=== PATIENT | female | born 1995 | race Caucasian/White ===

== ENCOUNTER 2017-12-20 22:02 | Observation (INO) | payer MEDICAID, SELFPAY ==
[2017-12-20 22:04] VITALS: BP 106/68; PULSE 121; RESP 16; TEMP 37.3; O2SAT 98; BMI 20.6
--- NOTE | 2017-12-20 23:37 | EKG12_ITS ---
Test Reason : FLANK PAIN Blood Pressure : / mmHG Vent. Rate : 093 BPM Atrial Rate : 093 BPM P-R Int : 166 ms QRS Dur : 086 ms QT Int : 348 ms P-R-T Axes : 051 012 013 degrees QTc Int : 432 ms Normal sinus rhythm Normal ECG Confirmed by FELIPE ZUNIGA, RADHA ([id number]), city editor LUPE MAGDALENO ([id number]) on 12/26/2017 2:16:53 PM Referred By: JULIA Confirmed By:RADHA WANG MD
[2017-12-20] MEDS: Ondansetron 4 MG/2 ML Vial IV (23:49)
[2017-12-20] MEDS: 0.9% Normal Saline 1,000 ML 1000 ML IV (23:50)
[2017-12-20] MEDS: Morphine 4 MG/ML Syringe IV (23:50)
[2017-12-20 23:55] LABS: Mucous, Urine 0 SEEN /hpf (<or=2+); Red Blood Cells-Urine 0 SEEN /hpf (0-5)
[2017-12-20 23:57] LABS: Color, Urine Yellow (Yellow); Glucose, Dipstick Normal (Normal); Leukocyte Esterase-Dipstick 100 /ul (Negative); Nitrite-Dipstick Positive (Negative); Occult Blood-Urine 10 /ul (Negative); Protein-Dipstick 15 mg/dl (Negative); Specific Gravity, Urine 1.015 (1.002-1.030); Urine Bilirubin Dipstick Negative (Negative); Urine Clarity Sl. Cloudy (Clear); Urine Urobilinogen 1 mg/dl (Normal)
[2017-12-21] VITALS (9 sets, daily range): BP systolic 91–110; BP diastolic 50–66; PULSE 79–104; RESP 16–20; TEMP 36.8–37.1; O2SAT 97–100; BMI 20.7
[2017-12-21] LABS: Ketone-Dipstick 150 mg/dl (Negative)
[2017-12-21 00:03] LABS: Bacteria 3+ /hpf (None Seen); Squamous Epithelial Cells - UA 0-5 SEEN /hpf (5-10); White Blood Cells 5-10 SEEN /hpf (0-5)
[2017-12-21 00:07] LABS: Hematocrit 28.4 % (37-47); Hemoglobin 9.1 g/dl (12.0-15.0); Mean Corpuscular Hgb 24.6 pg (27.0-32.0); Mean Corpuscular Volume 76.8 fL (81-99); Platelet Count 239 K/mm3 (150-450); RBC Distribution Width CV 17.5 % (11.6-14.6); RBC Distribution Width SD 49.4 fl (35.1-43.9); White Blood Count 10.2 K/mm3 (4.4-11.0)
[2017-12-21 00:08] LABS: Absolute Lymphocyte Count 1.15 X10^3/ul (0.83-4.51); Absolute Neutrophil Count 8.4 X10^3/uL (2.0-7.7); Basophil# 0.02 X10^3/uL; Basophil% 0.2 % (0-1); Eosinophil# 0.07 X10^3/uL; Eosinophils% 0.7 % (0-5); Lymphocyte # 1.15 X10^3/ul (4.0); Lymphocyte % 11.2 % (19-41); Monocyte# 0.63 X10^3/uL; Monocyte% 6.2 % (0-10); Neutrophil # 8.36 X10^3/uL (2.7-7.7); Neutrophil % 81.6 % (47-70); POSITIVE COUNT NO; POSITIVE DIFFERENTIAL NO; POSITIVE MORPHOLOGY NO
[2017-12-21 00:22] LABS: Anion Gap 12 (5-15); BUN 5 mg/dL (7-18); BUN/Creat Ratio 11.1 RATIO (10-20); Calcium,Total 8.2 mg/dL (8.5-10.1); Chloride 101 mmol/L (98-107); Creatinine, Serum 0.45 mg/dL (0.55-1.02); EST Glomerular Filtration Rate 182 mL/min (>60); Est Glom Filt Rate - Afr Amer 220 mL/min (>60); Estimated Creatinine Clearance 167.59 ml/min; Glucose 89 mg/dL (74-106); Sodium Level 135 mmol/L (136-145)
[2017-12-21 00:35] LABS: D-Dimer Quantitative (DVT/PE) 1.61 FEU/ug/m (0.27-0.49)
[2017-12-21 00:36] LABS: Pregnancy, Serum, hCG Quali. POSITIVE Negative (0-9 Nonpreg)
--- NOTE | 2017-12-21 00:41 | ED.DCSUM_ITS ---
- ER Visit Summary Date of Service: 12/21/17 Chief Complaint: Left flank pain that radiates anteriorly and now to the right side with shortness of breath and pleuritic chest pain History of Present Illness: The patient is a 22 F who presents with left flank pain that started several days ago. She states now the pain radiates anteriorly to the left side and right side. She does not menstruate since she has a Mirena. This was placed approximately 1 year ago by an portfolio strategist at the [facility]. She does report discomfort with movement as well as breathing. There is no history of trauma. She reports fever denies chills or rigors. She denies any URI symptoms. She denies food intolerance. She denies nausea, vomiting diarrhea. She does complain of frequency. She denies dysuria , urgency or hematuria. She reports history of blood clot with . She reported to triage shortness of breath. When questioned she states it hurts to breathe and she cannot get a deep breath. She denies any leg pain, swelling or discoloration. Physical Examination: Vital signs remarkable for heart rate 121. She appears uncomfortable. Head is atraumatic normocephalic. Pupils are equal round reactive. Extraocular muscles are intact. TMs are pearly white with landmarks noted. Nares patent with no drainage. Posterior pharynx without erythema or exudate. Uvula is midline. There is no dysphonia or dysphasia. Trachea is midline. There is no stridor with auscultation of the neck. Heart is regular without murmur, gallop or rub. S1 and S2 are normal. Lungs are clear to auscultation with good movement of air bilaterally. Abdomen is remarkable tenderness over the left kidney. There is left CVA tenderness. She has pain out of proportion to palpation. There is no dermatologic lesions noted to suggest herpes varicella-zoster. There is no hyperesthesia. There is no asymmetry, swelling, discoloration, leg vein distention, palpable cords or tenderness along the distribution of the deep venous system. Test Results: White count and differential are normal. H&H is 9.1 and 28.4. UA is remarkable for leukoesterase, nitrites and blood. Microscopic is remarkable for pyuria and bacteria. D-dimer is elevated at 1.61. Serum hCG was positive. Serum quantitative hCG is 47,253. Emergency Department Course and Treatment: With patient's constellation of symptoms concerned that she may have a pulmonary embolus and she is tachycardic at 121. Since her only complaint is frequency one needs to entertain possibility of or urinary tract infection. Since serum qualitative test was positive a serum quantitative hCG was obtained. A transabdominal pelvic ultrasound performed by dc reveals a single live uterus with a heartbeat of 140-150. Head was visualized and appears normal with no abnormality. Spine was visualized with no abnormal. The upper and lower extremities are visualized with no obvious abnormality. Treatment Plan: A urine culture was obtained since there is concern she has pyelonephritis. She was treated with 1 g of Rocephin IV piggyback. D-dimer can be elevated because of and because of infection. Since there is now a source and expiration for her symptoms pulmonary embolus is less likely on the differential. Because the Mirena was placed by a [facility] portfolio strategist the on-call physician was paged since patient will require admission for pyelonephritis in and to address the Mirena issue. Disposition: Microarray Operations Vice President on paged for admission Impression: 1. Pyelo-nephritis in a patient 2. Microcytic anemia This note was generated with [employer] dictation software. It may contain incorrect words, spelling, and punctuation that were not noted in review of the chart prior to signing ED Disposition - Plan for ED Patient: Chief Complaint: Flank Pain Referrals: Care Physician,No Primary [Primary Care Provider] -
[2017-12-21] MEDS: Ceftriaxone 1 GM/50 ML BAG IV (00:45)
[2017-12-21] MEDS: HYDROmorphone 1 MG/ML Syringe IV ×2 (05:06→09:23)
[2017-12-21] MEDS: Ondansetron 4 MG/2 ML Vial IV ×2 (05:21→09:23)
--- NOTE | 2017-12-21 07:14 | US_ITS ---
STUDY: SECOND AND THIRD TRIMESTER OBSTETRICAL ULTRASOUND - LIMITED REASON FOR EXAM: Female, 22 years old. Positive hCG. IUD. LMP: UNKNOWN. PRIOR ULTRASOUND: None. TECHNIQUE: Transabdominal ultrasound evaluation was performed. FINDINGS: There is a single intrauterine fetus. The fetus is in a variable presentation. There is demonstrated cardiac activity with a heart rate of 143 bpm. There is a normal amniotic fluid volume. The largest amniotic fluid pocket measures 4.4 cm x 4.2 cm. The amniotic fluid index (ALLY) is within normal limits. The placenta is anterior in location and is not low lying. There are Grade 0 placental changes. The cervix measures 3.9 cm in length. BIOMETRY: BPD: 3.46 cm: 16 weeks, 5 days HC: 12.97 cm: 16 weeks, 5 days AC: 10.96 cm: 16 weeks, 6 days FL: 2.0 cm: 60 weeks, 0 days Age by LMP: Unknown. age by current US: 16 weeks, 4 days. BEATRIZ by current US: June 03, 2018. Estimated weight: 156 grams, +/- 23 grams Gender: Male US/OB Limited (No Biometrics) IMPRESSION: Single live intrauterine gestation with a mean gestational age of 16 weeks and 4 days. The IUD is not seen. Electronically Signed: Allan Ferreira MD at 9:42 EDT Tel [phone], Service support ,
[2017-12-21 08:20] LABS: Absolute Lymphocyte Count 1.38 X10^3/ul (0.83-4.51); Basophil# 0.01 X10^3/uL; Basophil% 0.1 % (0-1); Eosinophil# 0.07 X10^3/uL; Eosinophils% 0.9 % (0-5); Hematocrit 25.9 % (37-47); Hemoglobin 8.1 g/dl (12.0-15.0); Lymphocyte # 1.38 X10^3/ul (4.0); Lymphocyte % 17.3 % (19-41); Mean Corp Hgb Conc 31.3 g/gl (32-36); Mean Corpuscular Hgb 24.5 pg (27.0-32.0); Mean Corpuscular Volume 78.5 fL (81-99); Mean Platelet Vol. 10.4 fl (6.2-12.0); Monocyte% 6.3 % (0-10); Neutrophil # 6.01 X10^3/uL (2.7-7.7); Neutrophil % 75.3 % (47-70); POSITIVE COUNT NO; POSITIVE DIFFERENTIAL NO; POSITIVE MORPHOLOGY NO; Platelet Count 231 K/mm3 (150-450); RBC Distribution Width CV 17.7 % (11.6-14.6); RBC Distribution Width SD 48.2 fl (35.1-43.9)
[2017-12-21 08:46] LABS: Ferritin 15 ng/mL (8-252); Iron 24 ug/dL (50-170); Iron Binding Capacity,Total 349 ug/dL (250-450); PERCENT IRON SATURATION 6.9 % (15.0-55.0)
[2017-12-21] MEDS: 0.9% NaCl Peripheral Flush Adult/Peds IV ×2 (09:22→09:24)
--- NOTE | 2017-12-21 09:24 | NURSING ---
no sniffy type respers noted now. she is resting quietly in bed with S.O holding her hand.
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
--- NOTE | 2017-12-21 11:10 | NURSING ---
Leila, Pipe Fitter Supervisor Maintenance talked with this nurse and we both think pt should be in suicidal precautions. [facility], FURNACE CLERK/Insurance Verification Clerk sitting in with pt. Pt is on the Room Camera and all cords and sharps removed from the room.
[2017-12-21] MEDS: 0.9% Normal Saline 1,000 ML 100 ML IV ×2 (12:02→22:43)
--- NOTE | 2017-12-21 12:13 | NURSING ---
Pt laying in bed with boyfriend in the room with her. This nurse is observing patient via Camera.
--- NOTE | 2017-12-21 13:15 | NURSING ---
CLIENT SUCCESS SPECIALIST specialist talking to pt and S.O at this time.
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
[2017-12-21] MEDS: oxyCODONE 5 MG Tablet PO ×2 (14:40→19:17)
[2017-12-21] MEDS: Escitalopram Oxalate 10 MG Tablet PO (18:05)
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
[2017-12-21 21:59] LABS: Absolute Lymphocyte Count 1.35 X10^3/ul (0.83-4.51); Absolute Neutrophil Count 6.2 X10^3/uL (2.0-7.7); Basophil# 0.01 X10^3/uL; Basophil% 0.1 % (0-1); Eosinophil# 0.04 X10^3/uL; Eosinophils% 0.5 % (0-5); Hematocrit 26.8 % (37-47); Hemoglobin 8.5 g/dl (12.0-15.0); Lymphocyte # 1.35 X10^3/ul (4.0); Lymphocyte % 16.6 % (19-41); Mean Corp Hgb Conc 31.7 g/gl (32-36); Mean Corpuscular Hgb 24.5 pg (27.0-32.0); Mean Corpuscular Volume 77.2 fL (81-99); Mean Platelet Vol. 9.9 fl (6.2-12.0); Monocyte# 0.53 X10^3/uL; Monocyte% 6.5 % (0-10); Neutrophil # 6.17 X10^3/uL (2.7-7.7); Neutrophil % 76.2 % (47-70); Platelet Count 233 K/mm3 (150-450); RBC Distribution Width CV 17.6 % (11.6-14.6); Red Blood Count 3.47 M/mm3 (4.2-5.4); White Blood Count 8.1 K/mm3 (4.4-11.0)
[2017-12-21 22:02] LABS: POSITIVE COUNT NO; POSITIVE DIFFERENTIAL NO; POSITIVE MORPHOLOGY NO
[2017-12-21 22:08] LABS: Anion Gap 8 (5-15); BUN 4 mg/dL (7-18); BUN/Creat Ratio 10.4 RATIO (10-20); Calcium,Total 7.9 mg/dL (8.5-10.1); Chloride 107 mmol/L (98-107); Creatinine, Serum 0.39 mg/dL (0.55-1.02); EST Glomerular Filtration Rate 218 mL/min (>60); Est Glom Filt Rate - Afr Amer 264 mL/min (>60); Estimated Creatinine Clearance 193.73 ml/min; Glucose 88 mg/dL (74-106); Potassium 3.6 mmol/L (3.5-5.1); Sodium Level 137 mmol/L (136-145)
[2017-12-22 00:25] LABS: Bedside Glucose 85 mg/dL (70-110)
[2017-12-22 04:00] VITALS: BP 98/51; PULSE 87; RESP 16; TEMP 36.3; O2SAT 99
[2017-12-22 09:03] LABS: Vitamin B12 256 pg/mL (211-911)
[2017-12-22 10:00] VITALS: BP 95/58; PULSE 80; RESP 16; TEMP 36.7; O2SAT 98
[2017-12-22] MEDS: 0.9% Normal Saline 1,000 ML 100 ML IV (10:25)
[2017-12-22] MEDS: Escitalopram Oxalate 10 MG Tablet PO (10:25)
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
--- NOTE | 2017-12-22 12:17 | DCINST_ITS ---
- Discharge Diagnoses Current Active Problems: acute pylonephritis You will use the following diet at home:: No restrictions Your food should be the consistency of: Regular Your liquids should be the consistency of: Regular/Thin Discharge Activity: Return to Normal Activity, May Shower, May Take a Tub Bath May resume sexual activity in: 1-2 weeks Call your doctor if your incision/area has: Increased Pain/ Swelling Call your doctor if you observe: Fever of 101 or Higher Additional Instructions: YOu may take acetaminophen as directed on the bottle needed for pain Allergies/Adverse Reactions: Allergies No Known Allergies Allergy (Verified 04/25/15 21:37) Medications to take at Discharge Cephalexin [Keflex] 500 mg PO Q8 #40 cap 12/22/17 Ferrous Sulfate 325 mg PO BIDCM #60 tab 12/22/17 Vit No.130/Iron/FA [ Vitamins] 1 ea PO DAILY #30 tab 12/22/17 The following prescriptions were given: Cephalexin [Keflex] 500 mg PO Q8 #40 cap Vit No.130/Iron/FA [ Vitamins] 1 ea PO DAILY #30 tab Ferrous Sulfate 325 mg PO BIDCM #60 tab Primary Care Physician: Care Physician,No Primary [Primary Care Provider] - Test Results: Test results from this visit will be discussed in further detail at your follow- up appointment, if applicable. Please Follow Up With: Preeti Topete MD - [phone] When: Call my office for an appointment in 1 week.
== END 2017-12-22 14:50 | disposition home or self-care (01) ==
LOC: ED 12-21 00:06 → MS2 12-21 02:46
PROVIDERS: Hospitalist; Obstetrics & Gynecology; Admitting Provider Obstetrics & Gynecology; Emergency Provider Emergency Medicine; Visit Provider Obstetrics & Gynecology
DX: O23.02 Infections of kidney in pregnancy, second trimester (principal); Z3A.16 16 weeks gestation of pregnancy; Z87.891 Personal history of nicotine dependence; Z86.718 Personal history of other venous thrombosis and embolism; O99.012 Anemia complicating pregnancy, second trimester; D64.89 Other specified anemias
CPT/HCPCS: 76815; 80048; 81001; 82607; 82728; 82962; 83540; 83550; 84702; 84703; 85025; 85379; 87077; 87086; 87088; 87186; 93005; 96361; 96365; 96366; 96367; 96375; 96376; 97802; 99218; 99283; 99406; J7030; A4216; G0378; J2405

== ENCOUNTER 2017-12-25 08:47 | Emergency (ER) | payer MEDICAID, SELFPAY ==
[2017-12-25 08:51] VITALS: BP 108/62; PULSE 64; RESP 16; TEMP 36.8; O2SAT 100; BMI 20.7
--- NOTE | 2017-12-25 09:26 | EKG12_ITS ---
Test Reason : UPPER EXTREMITY Blood Pressure : / mmHG Vent. Rate : 061 BPM Atrial Rate : 061 BPM P-R Int : 158 ms QRS Dur : 086 ms QT Int : 396 ms P-R-T Axes : 027 017 018 degrees QTc Int : 398 ms Normal sinus rhythm Normal ECG Confirmed by RADHA WANG MD ([id number]), writer editor LUPE MAGDALENO ([id number]) on 12/27/2017 2:11:56 PM Referred By: SMITA Confirmed By:RADHA WANG MD
--- NOTE | 2017-12-25 09:30 | RAD_ITS ---
STUDY: X-RAY - RIGHT HAND REASON FOR EXAM: Female, 22 years old. Pain along the distal interphalangeal joint of the thumb following injury. TECHNIQUE: 3 view(s) of the hand. COMPARISON: None. FINDINGS: Normal radiocarpal articulation. Normal distal radioulnar joint. Normal visualized carpal bones. Normal carpal articulations Normal carpometacarpal articulation of the thumb. Normal second through fifth carpometacarpal joints. Normal metacarpi. Normal metacarpophalangeal joint of the thumb. Normal interphalangeal joint of the thumb. Normal proximal and distal phalanges of the thumb. Normal metacarpophalangeal joints of the second through fifth fingers. Normal proximal and distal interphalangeal joints of the second through fifth fingers. Normal phalanges of the second through fifth fingers. The soft tissue structures are unremarkable. RAD/Hand Min 3 Views IMPRESSION: Normal x-ray examination of the hand. Electronically Signed: Allan Ferreira MD at 10:11 EDT Tel [phone], Service support ,
--- NOTE | 2017-12-25 09:32 | ED.VISSUMM ---
- ER Visit Summary Date of Service: 12/25/17 Chief Complaint: Right thumb injury History of Present Illness: The patient is a 22 F presenting with right thumb injury. Patient states she accidentally slammed her right thumb in a car door. She states after immediately following that she had throbbing pain, saw blood on her thumb and passed out. She was sitting and had no additional injury. She states she is 5 months . Denies vaginal bleeding or pain. She is currently on Keflex for UTI. Physical Examination: Vitals are stable. Patient is afebrile. Alert no acute distress. HEENT exam is unremarkable. Neck is nontender Lungs are clear and equal bilaterally. Heart is regular rate and rhythm. Abdomen is soft gravid nontender nondistended. Extremities right thumb distal tenderness, mild skin avulsion proximal to nail. Skin is warm and dry. No focal neurologic deficit. Remainder of exam is unremarkable. Emergency Department Course and Treatment: Patient was given Tylenol, Zofran. Right hand x-ray shows no acute process. EKG is sinus rate 61. Orthostatics negative. heart tones 152. Aluminum foam splint was applied. Patient is resting comfortably in the emergency department. Discussed with Hilda babcock for [facility] GATE SUPERVISOR and she will follow up in the office. Advised to follow-up with GATE SUPERVISOR. Advised return ED if worsening complaints. Disposition: Discharge home Impression: Right thumb contusion, vagal episode This note was generated with [employer] dictation software. It may contain incorrect words, spelling, and punctuation that were not noted in review of the chart prior to signing ED Disposition - Plan for ED Patient: Chief Complaint: Upper Extremity Injury Instructions: ED Crush Injury Finger No Fx Referrals: Preeti Topete MD [STAFF PHYSICIAN] - Care Physician,No Primary [Primary Care Provider] -
--- NOTE | 2017-12-25 09:35 | ED.DCSUM_ITS ---
- ER Visit Summary Date of Service: 12/25/17 Chief Complaint: Right thumb injury History of Present Illness: The patient is a 22 F presenting with right thumb injury. Patient states she accidentally slammed her right thumb in a car door. She states after immediately following that she had throbbing pain, saw blood on her thumb and passed out. She was sitting and had no additional injury. She states she is 5 months . Denies vaginal bleeding or pain. She is currently on Keflex for UTI. Physical Examination: Vitals are stable. Patient is afebrile. Alert no acute distress. HEENT exam is unremarkable. Neck is nontender Lungs are clear and equal bilaterally. Heart is regular rate and rhythm. Abdomen is soft gravid nontender nondistended. Extremities right thumb distal tenderness, mild skin avulsion proximal to nail. Skin is warm and dry. No focal neurologic deficit. Remainder of exam is unremarkable. Emergency Department Course and Treatment: Patient was given Tylenol, Zofran. Right hand x-ray shows no acute process. EKG is sinus rate 61. Orthostatics negative. heart tones 152. Aluminum foam splint was applied. Patient is resting comfortably in the emergency department. Discussed with Hilda babcock for [facility] AUTO ELECTRICIAN and she will follow up in the office. Advised to follow-up with AUTO ELECTRICIAN. Advised return ED if worsening complaints. Disposition: Discharge home Impression: Right thumb contusion, vagal episode This note was generated with [employer] dictation software. It may contain incorrect words, spelling, and punctuation that were not noted in review of the chart prior to signing ED Disposition - Plan for ED Patient: Chief Complaint: Upper Extremity Injury Instructions: ED Crush Injury Finger No Fx Referrals: Preeti Topete MD [STAFF PHYSICIAN] - Care Physician,No Primary [Primary Care Provider] -
[2017-12-25] MEDS: Acetaminophen 500 MG Tablet 1000 MG PO (10:03)
[2017-12-25] MEDS: Ondansetron ODT 4 MG Tablet PO (10:03)
[2017-12-25 10:06] VITALS: BP 103/50; BP 109/68; BP 113/67; PULSE 66; PULSE 68; PULSE 69
--- NOTE | 2017-12-25 10:32 | ED.DEP ---
ED Disposition - Plan for ED Patient: Chief Complaint: Upper Extremity Injury Instructions: ED Crush Injury Finger No Fx Referrals: Care Physician,No Primary [Primary Care Provider] - Preeti Topete MD [STAFF PHYSICIAN] -
== END 2017-12-25 11:14 | disposition home or self-care (01) ==
PROVIDERS: Emergency Provider Emergency Medicine
DX: O9A.219 Injury, poisoning and certain other consequences of external causes complicating pregnancy, unspecified trimester (principal); S60.011A Contusion of right thumb without damage to nail, initial encounter; Z3A.00 Weeks of gestation of pregnancy not specified; R55 Syncope and collapse; O23.40 Unspecified infection of urinary tract in pregnancy, unspecified trimester; W23.0XXA Caught, crushed, jammed, or pinched between moving objects, initial encounter; Y93.9 Activity, unspecified; Y92.9 Unspecified place or not applicable
CPT/HCPCS: 73130; 93005; 99285

== ENCOUNTER 2018-03-12 21:20 | Outpatient (CLI) | payer MEDICAID, SELFPAY ==
[2018-03-12 21:37] VITALS: BMI 24.5
[2018-03-12 22:00] LABS: Color, Urine Yellow (Yellow); Glucose, Dipstick Normal (Normal); Ketone-Dipstick 5 mg/dl (Negative); Leukocyte Esterase-Dipstick 100 /ul (Negative); Nitrite-Dipstick Negative (Negative); Occult Blood-Urine Negative /ul (Negative); Protein-Dipstick 15 mg/dl (Negative); Urine Clarity Sl. Cloudy (Clear); Urine Urobilinogen 12 mg/dl (Normal)
[2018-03-12 22:04] LABS: Urine Bilirubin Dipstick 1 mg/dL (Negative)
[2018-03-12 22:08] LABS: White Blood Cells 10-25 SEEN /hpf (0-5)
[2018-03-12 22:09] LABS: Bacteria 2+ /hpf (None Seen); Mucous, Urine RARE /hpf (<or=2+); Red Blood Cells-Urine 0-5 SEEN /hpf (0-5); Squamous Epithelial Cells - UA 5-10 SEEN /hpf (5-10)
[2018-03-12] MEDS: Acetaminophen 500 MG Tablet 1000 MG PO (23:20)
--- NOTE | 2018-03-13 00:35 | OB.TRI.NOTE ---
- Problem List (1) Late care affecting in third trimester Status: Acute (2) Pelvic pain affecting in third trimester, antepartum Status: Acute History of Present Illness Date of Service: 03/13/18 Was patient seen by the physician?: Yes Reason For Visit: R/O LABOR Date of Service: 03/12/18 Final BEATRIZ: 05/31/18 Final BEATRIZ Source: LMP Gestational age: 28 Weeks and 5 Days History of Present Illness: Patient presents reporting onset of cramping and scant mucus discharge. Patient also reports worsening pelvic pressure and discomfort with walking. Patient's adoptive mother was concerned that something was happening, so patient decided to come into hospital for evaluation. Patient reports +FM, denies LOF, denies VB. Allergies No Known Allergies Allergy (Verified 04/25/15 21:37) Review of Systems Constitutional: Denies: Chills, Fever, Weight Change HEENT: Denies: Head Aches, Sinus Congestion, Sinus Drainage Cardiovascular: Denies: Chest Pain, Palpitations Respiratory: Denies: Cough, Shortness of breath at rest, Sputum production Gastrointestinal: Denies: Abdominal Pain, Nausea, Vomiting Genitourinary: Denies: Dysuria Gynecological: Reports: Vaginal discharge - Reports scant mucus discharge Musculoskeletal: Denies: Joint Pain, Joint Tenderness Skin: Denies: Rash, Wounds Neurological: Denies: Numbness, Tingling, Focal weakness Psychiatric: Denies: Anxiety, Depression, Homicidal Ideations, Suicidal Ideations Hematologic/ Lymphatic: Denies: Easy Bruising, Easy Bleeding Physical Exam Vitals: See nursing note for vital signs - normotensive and afebrile General: Alert, Oriented x3, No apparent distress HEENT: Atraumatic, Normocephalic. 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 Negative for: Vulvar lesions Estimated gestational size: Appropriate for gestational size Presentation: Cephalic Cervix Dilation (cm): 0 Station: -3 Effacement (%): 0 NST - FHR Rate Baby A Baseline: 130 Variability:: Moderate Accelerations:: 15 x 15 Decelerations:: None NST Reactive:: Appropriate for gestational age FHR Category:: Category I Uterine Activity:: No contractions noted on tocometer Impression/Plan 22 y/o @ 28.4weeks, Pelvic Pain, R/O PTL, Category I FHT 1) Urinalysis positive for leuk esterase and bacteria - CCMS sent 2) GC/CT culture sent 3) PTL precautions reviewed 4) Cervix closed - unlikely to be PTL. Patient discharge to home in stable condition 5) RTC to [facility] as scheduled for next visit. Blanca PATTERSON
--- NOTE | 2018-03-13 00:39 | OB.TRI.HP_ITS ---
- Problem List (1) Late care affecting in third trimester Status: Acute (2) Pelvic pain affecting in third trimester, antepartum Status: Acute History of Present Illness Date of Service: 03/13/18 Was patient seen by the physician?: Yes Reason For Visit: R/O LABOR Date of Service: 03/12/18 Final BEATRIZ: 05/31/18 Final BEATRIZ Source: LMP Gestational age: 28 Weeks and 5 Days History of Present Illness: Patient presents reporting onset of cramping and scant mucus discharge. Patient also reports worsening pelvic pressure and discomfort with walking. Patient's adoptive mother was concerned that something was happening, so patient decided to come into hospital for evaluation. Patient reports +FM, denies LOF, denies VB. Allergies No Known Allergies Allergy (Verified 04/25/15 21:37) Review of Systems Constitutional: Denies: Chills, Fever, Weight Change HEENT: Denies: Head Aches, Sinus Congestion, Sinus Drainage Cardiovascular: Denies: Chest Pain, Palpitations Respiratory: Denies: Cough, Shortness of breath at rest, Sputum production Gastrointestinal: Denies: Abdominal Pain, Nausea, Vomiting Genitourinary: Denies: Dysuria Gynecological: Reports: Vaginal discharge - Reports scant mucus discharge Musculoskeletal: Denies: Joint Pain, Joint Tenderness Skin: Denies: Rash, Wounds Neurological: Denies: Numbness, Tingling, Focal weakness Psychiatric: Denies: Anxiety, Depression, Homicidal Ideations, Suicidal Ideations Hematologic/ Lymphatic: Denies: Easy Bruising, Easy Bleeding Physical Exam Vitals: See nursing note for vital signs - normotensive and afebrile General: Alert, Oriented x3, No apparent distress HEENT: Atraumatic, Normocephalic. 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 Negative for: Vulvar lesions Estimated gestational size: Appropriate for gestational size Presentation: Cephalic Cervix Dilation (cm): 0 Station: -3 Effacement (%): 0 NST - FHR Rate Baby A Baseline: 130 Variability:: Moderate Accelerations:: 15 x 15 Decelerations:: None NST Reactive:: Appropriate for gestational age FHR Category:: Category I Uterine Activity:: No contractions noted on tocometer Impression/Plan 22 y/o @ 28.4weeks, Pelvic Pain, R/O PTL, Category I FHT 1) Urinalysis positive for leuk esterase and bacteria - CCMS sent 2) GC/CT culture sent 3) PTL precautions reviewed 4) Cervix closed - unlikely to be PTL. Patient discharge to home in stable condition 5) RTC to [facility] as scheduled for next visit. Blanca PATTERSON
[2018-03-13 01:07] LABS: Chlamydia Trachomatis by PCR Negative (Negative); Neisserai gonorrhoeae by PCR Negative (Negative); Probe Check PASS; Sample Adequacy Control PASS; Specimen Processing Control PASS
== END 2018-03-12 23:25 | disposition home or self-care (01) ==
LOC: WPOUT 21:34 → WP 21:36
PROVIDERS: Advanced Practice Midwife; Visit Provider Obstetrics & Gynecology
DX: O26.893 Other specified pregnancy related conditions, third trimester (principal); R10.2 Pelvic and perineal pain; O09.33 Supervision of pregnancy with insufficient antenatal care, third trimester; Z3A.28 28 weeks gestation of pregnancy
CPT/HCPCS: 59025; 59050; 81001; 87086; 87088; 87491; 87591; 99218; G0378

== ENCOUNTER 2018-05-30 19:31 | Inpatient (IN) | payer MEDICAID, SELFPAY ==
[2018-05-30 19:38] VITALS: BMI 27.3
[2018-05-30] MEDS: 0.9% Normal Saline 100 ML IV.SOLN. INTRA-UTER (20:30)
[2018-05-30] MEDS: Lactated Ringers 1,000 ML 50 ML IV (20:45)
--- NOTE | 2018-05-30 21:00 | HP.PCM_ITS ---
- Problem List (1) Anemia affecting , antepartum Status: Acute (2) Support system deficit Status: Chronic (3) Custody issue Status: Chronic (4) History of suicidal tendencies Status: Chronic (5) History of depression Status: Chronic (6) History of marijuana use Status: Chronic History Date of Admission: 05/30/18 Final BEATRIZ: 05/31/18 Final BEATRIZ Source: LMP Gestational age: 39 Weeks and 6 Days History of this : This is a 23 year-old, G [4], P [3], at 39+6 weeks gestational age who presents for admission for IOL for maternal well-being. Patient was seen in office today and reported worsening depression and thoughts of harming her self over the weekend. Patient also noted a decrease in movement. While Reactive NST was noted in office, this patient case was discussed with Dr. Efrem ZUNIGA OB provider weapons system instrument mechanic and back-up physician at the time. [place] decision made to move forward with IOL for maternal well-being. Patient's course was initiated at 20 wks x 10 visits. Course was complicated by hospital admission for pyelonephritis at 19 weeks gestation, and admission to [id number] facility for substance use (vaping, pills, marijuana). Allergies No Known Allergies Allergy (Verified 05/30/18 20:05) cats Home Medications: Home Medications Ferrous Sulfate 325 mg PO TID 03/12/18 Vit No.130/Iron/Folic [ Vitamins] 1 each PO DAILY 03/12/18 Citalopram [Celexa] 20 mg PO DAILY 05/30/18 Smoking Status: Former smoker Alcohol: None Number of Fetus(es): 1 History Past Pregnancies: Past Pregnancies Delivery Date Name GA/Weeks Outcome Route Weight Gender Labor Length Anesthesia Delivery Location Provider FOB Labs: GBS Negative, Urine Culture - Negative, Urine Tox - Positive Marijuana --> rpt in 3rd trimester negative, 1 hour GCT = 120, H/H = 9.3/31.3--> 8.9/29.1 -->8.3 GC/CT = Neg/+CT --> [facility] and Rpt was Neg/ Neg, HIV Neg, HepBsAg Neg, Rubella Immune, Syphilis Neg, HCV Neg, O+, Abs Screen Neg, Trich Neg Ultrasound - 2nd trimester anatomy survey done WNL Expected Infant Delivery Method: Spontaneous Vaginal Describe any other labor & delivery plans:: Desires epidural for labor Number of Visits: 10 Review of Systems Constitutional: Denies: Chills, Fever, Weight Change HEENT: Denies: Head Aches, Sinus Congestion, Sinus Drainage Cardiovascular: Denies: Chest Pain, Palpitations Respiratory: Denies: Cough, Shortness of breath at rest, Sputum production Gastrointestinal: Denies: Abdominal Pain, Nausea, Vomiting Genitourinary: Denies: Dysuria Gynecological: Reports: Vaginal discharge - Reports possible loss of mucus plug. Denies: Vaginal bleeding Musculoskeletal: Denies: Joint Pain, Joint Tenderness Skin: Denies: Rash, Wounds Neurological: Denies: Numbness, Tingling, Focal weakness Psychiatric: Reports: Depression, Suicidal Ideations. Denies: Anxiety, Homicidal Ideations Hematologic/ Lymphatic: Denies: Easy Bruising, Easy Bleeding Physical Exam Vitals: See nursing notes for Vital Signs - Normotensive and patient is Afebrile General: Alert, Oriented x3, No apparent distress HEENT: Atraumatic, Normocephalic. 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 Negative for: Vulvar lesions Estimated gestational size: Appropriate for gestational size Presentation: Cephalic Cervix Dilation (cm): 2 Station: -2 Effacement (%): 60 Assessment/Plan All Active Problems Late care affecting in third trimester (Acute) Pelvic pain affecting in third trimester, antepartum (Acute) Anemia affecting , antepartum (Acute) This is a 23 year-old, G [4], P [3], at 39+6 weeks gestational age, IOL for Maternal Well-Being P: 1) Admit patient - Dr. Efrem ZUNIGA OB back-up provider aware of admission 2) IV heplock started 3) Gill Catheter bulb placed per protocol for IOL 4) Anticipate AROM with use of pitocin once cervix >3cm dilated 5) Epidural on request 6) Anticipate Blanca Callahan RESOURCE PROGRAM TEACHER-CNM
[2018-05-30 21:13] LABS: Hematocrit 33.9 % (37-47); Hemoglobin 10.5 g/dl (12.0-15.0); Mean Corpuscular Hgb 25.6 pg (27.0-32.0); Mean Corpuscular Volume 82.7 fL (81-99); Mean Platelet Vol. 10.2 fl (6.2-12.0); Platelet Count 240 K/mm3 (150-450); RBC Distribution Width CV 28.1 % (11.6-14.6); RBC Distribution Width SD 80.6 fl (35.1-43.9); White Blood Count 10.1 K/mm3 (4.4-11.0)
[2018-05-30 21:19] LABS: Scan Indicated on CBC? Y/N YES- FLAGS NOTED
[2018-05-30 21:24] LABS: Amphetamine Urine VISTA NEGATIVE (<1000 ng/mL); Barbiturate Urine VISTA NEGATIVE (< 200 ng/mL); Benzodiazepine Urine VISTA NEGATIVE (< 200 ng/mL); Cocaine Urine VISTA NEGATIVE (< 300 ng/mL); Ecstacy Urine VISTA NEGATIVE (< 500 ng/mL); Methadone Urine VISTA NEGATIVE (< 300 ng/mL); PCP Urine VISTA NEGATIVE (< 25 ng/mL); THC Urine VISTA NEGATIVE (< 50 ng/mL); Vista UDS pH Range 7
[2018-05-30 21:31] LABS: Differential Comment SCANNED
[2018-05-31] MEDS: 0.9% Saline Lock 10 ML Syringe IV
[2018-05-31] MEDS: Oxytocin 30 units/NS 500 ml 30 UNITS/500 ML IV.SOLN IV (00:05)
--- NOTE | 2018-05-31 00:32 | PCM.PN.OB ---
Patient Problems: Active and Suspected Problems Anemia affecting , antepartum (Acute) Subjective: Patient sitting up in bed, michael catheter has come out and IV pitocin has been ordered to be started. Patient denies any complaints or concerns at this time. Requests SVE to be done at this time, patient is considering getting an epidural placed. Objective: FHT baseline 120, moderate variability, + accels, no decels Ctx irregular, q 5-10 minutes, palpated mild to moderately strong SVE = 3/70/-2 posterior cervix - Physical Exam General: Alert, Oriented x3, Cooperative HEENT: Atraumatic, Normocephalic Lungs: Normal air movement Cardiovascular: Regular rate, Regular Rhythm Abdomen: Soft, Non Tender, Non-Distended Extremities: No edema Neurological: Deep Tendon Reflexes 2+/4 and Symmetrical Psych/Mental Status: Appropriate Weight: 159 lb 6 oz Body Mass Index (BMI) 27.3 Finger Stick Blood Glucose 99 Laboratory Tests Past 24 Hrs 05/30/18 05/30/18 05/30/18 20:45 20:45 21:00 WBC 10.1 RBC 4.10 L Hgb 10.5 L Hct 33.9 L MCV 82.7 MCH 25.6 L MCHC 31.0 L RDW 28.1 H RDW Differential 80.6 H Plt Count 240 MPV 10.2 Differential Comment SCANNED Urine Opiates Screen NEGATIVE Urine Methadone Screen NEGATIVE Ur Barbiturates Screen NEGATIVE Ur Phencyclidine Scrn NEGATIVE Ur Amphetamines Screen NEGATIVE U Methamphetamin-MDMA NEGATIVE U Benzodiazepines Scrn NEGATIVE Urine Cocaine Screen NEGATIVE U Cannabinoids Screen NEGATIVE Ur Drug Screen Comment Blood Type O POSITIVE Antibody Screen NEGATIVE Medical Necessity - Tobacco Use Smoking Status: Former smoker Assessment/Plan All Active Problems Late care affecting in third trimester (Acute) Pelvic pain affecting in third trimester, antepartum (Acute) Anemia affecting , antepartum (Acute) 23 y/o @ 39.6wks, IOL for Maternal Well-Being, Category I FHT P: 1) Continue present management 2) Epidural on request 3) Continue pitocin titration for labor augmentation per protocol 4) Anticipate Blanca Callahan APRN-TIFFANIE
[2018-05-31] MEDS: fentaNYL-bupivacaine (epidural) 100 ML BAG EPIDURAL ×2 (01:07→05:35)
[2018-05-31] MEDS: Ondansetron 4 MG/2 ML Vial IV (05:30)
[2018-05-31] MEDS: Lactated Ringers 1,000 ML 50 ML IV ×2 (05:40)
--- NOTE | 2018-05-31 06:28 | PCM.PN.OB ---
Patient Problems: Active and Suspected Problems Anemia affecting , antepartum (Acute) Subjective: Patient awake and sitting comfortably, reports that epidural continues to provide comfort for her at this time. Patient also noted small gush of fluid recently, confirmation of SROM noted by nursing staff for clear fluid. Objective: FHT baseline 120, moderate variability, + accels, occasional early decels noted Ctx q 2 minutes, lasting 60 seconds, palpate strong SVE = deferred; last check by nursing staff /-1 - Physical Exam General: Alert, Oriented x3, Cooperative HEENT: Atraumatic, Normocephalic Lungs: Normal air movement Cardiovascular: Regular rate, Regular Rhythm Abdomen: Soft, Non Tender, Non-Distended Extremities: No edema Neurological: Deep Tendon Reflexes 2+/4 and Symmetrical Psych/Mental Status: Appropriate Weight: 159 lb 6 oz Body Mass Index (BMI) 27.3 Finger Stick Blood Glucose 99 Intake and Output for Last 24 Hours 05/29/18 05/30/18 05/31/18 23:59 23:59 23:59 Intake Total 2348 / 2348 Output Total 150 / 150 Balance 2198 / 2198 Laboratory Tests Past 24 Hrs 05/30/18 05/30/18 05/30/18 20:45 20:45 21:00 WBC 10.1 RBC 4.10 L Hgb 10.5 L Hct 33.9 L MCV 82.7 MCH 25.6 L MCHC 31.0 L RDW 28.1 H RDW Differential 80.6 H Plt Count 240 MPV 10.2 Differential Comment SCANNED Urine Opiates Screen NEGATIVE Urine Methadone Screen NEGATIVE Ur Barbiturates Screen NEGATIVE Ur Phencyclidine Scrn NEGATIVE Ur Amphetamines Screen NEGATIVE U Methamphetamin-MDMA NEGATIVE U Benzodiazepines Scrn NEGATIVE Urine Cocaine Screen NEGATIVE U Cannabinoids Screen NEGATIVE Ur Drug Screen Comment Blood Type O POSITIVE Antibody Screen NEGATIVE Medical Necessity - Tobacco Use Smoking Status: Former smoker Assessment/Plan All Active Problems Late care affecting in third trimester (Acute) Pelvic pain affecting in third trimester, antepartum (Acute) Anemia affecting , antepartum (Acute) 23 y/o @ 40 weeks, Transition stage of Labor, Category I FHT P: 1) Continue present management 2) Anticipate 3) Dr. Efrem ZUNIGA OB back-up updated on patient status Blanca PATTERSON
--- NOTE | 2018-05-31 08:38 | PCM.PN.BLA ---
Progress Note SVE done - patietn found to be AL/100/0 with BBOW. AROM of forebag done for clear fluid. Will await for maternal urge to bear down and then will start pushing with patient. Blanca Callahan APRN-ARISM
[2018-05-31] MEDS: Oxytocin 30 units/NS 500 ml 30 UNITS/500 ML IV.SOLN 334 UNITS IV (09:08)
--- NOTE | 2018-05-31 09:23 | PCM.OB.VAG ---
- Problem List (1) Anemia affecting , antepartum Status: Acute (2) Support system deficit Status: Chronic (3) Custody issue Status: Chronic (4) History of suicidal tendencies Status: Chronic (5) History of depression Status: Chronic (6) History of marijuana use Status: Chronic Vaginal Delivery Maternal Presentation: Medically Indicated Induction Method of Induction: Pitocin, Gill Bulb Medical Reason for Induction: - - Maternal Well-Being Amniotic Fluid Description: Clear Final BEATRIZ: 05/31/18 Gestational age: 40 Weeks and 0 Days Date of Procedure: 05/31/18 Pre-Operative Diagnosis: IUP @ 40 weeks, Suicidal Ideations, Hx of Depression Post-Operative Diagnosis: of Viable Baby Surgery/ Procedure Performed: Spontaneous Vaginal Delivery Anesthesiologist: Dann Katz Type of Anesthesia: Epidural Description of Procedure: Patient was found to be c/c/+1 with forebag that was bulging. AROM of forebag for clear fluid. Soon after, patient felt urge to bear down and spontaneously delivered viable boy baby over intact perineum at 0837. Infant head delivered OA, restituted to ROMAIN and then ROT. had spontaneous cry and respirations. dried and stimulated, mouth and nose bulb suctioned when it was placed on maternal chest, Apgars 8 and 9. weight pending. Umbilical cord clamped and cut once it stopped pulsing. Placenta then delivered spontaneously using gentle downward cord traction with maternal pushing effort. Placenta intact with 3VC, placental triage WNL. FF midline 2FB to massage, 3rd stage pitocin for active management infusing per protocol. Mirena IUD placed using sterile technique per patient request for immediate LARC. Partial expulsion noted soon after, IUD repositioned with gloved hand. Plan for Ancef 1g IV x 1 for infection prophylaxis. Upon inspection of vaginal vault, no lacerations noted. EBL = 150cc. Sponge count correct. Vaginal sweep negative. Bonding and [id number] initiated. Social Work Consult filed. Blanca Callahan APRN-CNM Presentation: Vertex Placental Delivery Description: Spontaneous Placenta Disposition: [facility] Cord Vessel Description: 3 Vessels Cord Entanglement: None Estimated Blood Loss: 150 A gender: Male (1 minute): 8 (5 minute): 9 Episiotomy Description: None Laceration: None Medications given after delivery: IV Pitocin Complications: None
[2018-05-31] MEDS: Oxytocin 30 units/NS 500 ml 30 UNITS/500 ML IV.SOLN 167 UNITS IV (09:38)
[2018-05-31] MEDS: Cefazolin 1 GM/50 ML BAG IV (10:49)
[2018-05-31] MEDS: Citalopram 20 MG Tablet PO (10:50)
[2018-05-31 13:30] VITALS: BP 103/56; PULSE 88; RESP 16; TEMP 36.7; O2SAT 100
[2018-05-31] MEDS: Ibuprofen 600 MG Tablet PO (14:40)
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
--- NOTE | 2018-05-31 16:30 | CASEMGMT ---
Social Work Assessment Labor and Delivery Unit Date of Referral: 05/30/2018 Time of Referral: 2119 Referred By: Blanca Callahan Date of Intervention: 05/31/2018 Time of Intervention: 1630 Reason for Referral: maternal mental health and substance use history. History obtained from: medical record and mother of baby (TITO) Marj Escobar Household composition: TITO reports has had own apartment for two months now. Lives alone and intends to take baby to this home, as well as transition 3rd child back into the home. Patient's parent/guardian status: MOB is but for several years now from Ramila Lopez. The is not the father to the baby. Current father of baby (FOB) is reported to be Jerry Tannerashley. MOB reports was with Jerry for almost a year and broke up on August 2017. MOB reports uncertainty as to how much involvement the current and reported FOB will have. MOB reports FOB has some things of his own to work out. TITO now has 4 children. Minor Children include: Jennifer Bocanegra, born 13, father if Ramila Lopez, child currently in custody of MOB?s parents. Zaid Lopez, born 03[birth year]07[birth year]15, father is Ramila Lopez, child currently in custody of MOB?s parents. Chioma Lopez, born [birth year]-17, child in MOB?s custody, though as been living with MOB?s parents since the summertime when TITO has having homelessness issues. , Ethan Lopez, born 05[birth year]2018, MOB reporting intentions to be able to raise this baby. Medical History: TITO is G4, P3 to 4 after delivering Ethan. was unplanned and a surprise. MOB found out about around 19 weeks gestation, when TITO was hospitalized for a kidney infection. PNC in the OBGYN office then started around 20 weeks. Baby boy Ethan was born weighing 8 pounds 13 ounces, ?s 8 and 9. Educational Status: TITO reports graduated high school from a school called [employer], but it came out the certificates were fake, and the school did not meet standard school requirements. TITO reports is now working GED completion, just has one more test to pass before gets GED. 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 MOB now has zavala assistance through [employer]. Supplies: MOB reports to have car seat, crib, changing table, a pack of wipes, ?someone gave me? a pack of diapers, and some clothing. MOB still needs bottles, formula and a breast pump. MOB is likely going to go a combination of breast and bottle feeding at this point. Childcare/Caregiver(s): MOB plans to be primary caregiver, with MOB?s mother helping MOB when able. Transportation: MOB reports using a friend?s car and to have a lead driver?s license. Programs/Agencies Involved: MOB reports to have food, medical and zavala through [employer]. Reports active with WIC but needs to call now that the baby is born. Active with [employer]. Active with case management through [facility] related to housing issues. MOB interested in having [facility] information only. Children Services/Legal Issues: No reported legal issues for MOB. MOB has history of children services involvement through [facility] due to concerns with mental health. Children services first became aware of MOB after of first child when MOB was hospitalized at [facility] for issues related to depression. It is reported that children services became involved with the first two children, much related to MOB?s emotional health issues and ability to care for the children. It is reported that children services indicated that if MOB?s parents did not seek custody then children services would be seeking custody. MOB reports that MOB still has custody of daughter born in 2017 however. No reports of any active children service case for MOB currently. Behavioral Health Issues: Mental Health History: MOB with history of depression diagnosed in 2011. MOB with history of ADHD as well. MOB has history of depression after each delivery. MOB reports was treated with Celexa after Chioma was born, that this helped and when MOB was feeling better that went off the medicine. MOB reports that when found out was decided not to restart medicine but agreed to restart when depression started to worsen at the beginning of May. MOB with history of self-injury in 2011, denies self-injury since. MOB reports history of suicidal ideation in the past, most recent as the weekend prior to delivery. MOB has history of counseling at [facility] in [place], at [facility] in [place], and [facility] in [place]. MOB reports has been to [facility] as well as a counseling in [place]. MOB had an [place] Depression Screen done in the OBGYN office on 03-08-18 with a score of16 of 30. Rescreened today and score now a 25, present with suicidal thoughts in the last week. Substance Use History: MOB reports history of social drinking, mostly on the weekends. MOB reports was drinking on Monday nights prior to knowledge. MOB denies blacking out or passing out, had a hard time saying how much drank at a time. MOB reports stopped when found out was . MOB reports used Adderall on the weekends, when ?knew it would be a long Monday night.? MOB reports her friends snorted the pills, but MOB ingested orally only. MOB reports history of marijuana usage prior to knowledge and then at least once after finding out about , used due to feeling stressed and depressed. MOB denies any history of cocaine, heroin, meth, or other narcotic drug history. Family History: biological mother reported to have history of drug and alcohol issues. Drug Screens: maternal screen positive on 01-17-18 and subsequent negative on 04-17-18 and 05-30-18. Meconium on baby has been sent and is pending. Family/Social Stressors: TITO is a single mother, father of baby not really involved. MOB with housing issues during this , living in a car, then a care home, and only in own apartment for 2 months now. MOB lives alone, limited support system present, though MOB identifies her mother as a strong support person. MOB does not have custody of 2 oldest children and then reportedly custody of 3rd child, though living apart from this child since housing issues have occurred. MOB struggling with depression and overall mental health during this , admits became depressed after finding out about , that mood did stabilize midway through, and started to worsen again at the end. MOB just restarted medication for depression, no current counseling. Illicit drug use present for MOB and was present until MOB found out about in the 2nd trimester. MOB with late care, limited resources. MOB?s delivery induced for maternal wellbeing related to emotional health issues. Support Systems: MOB identifies her mother and father as supports, Lincoln and Mikal Escobar. MOB reports Denisa is a strong support person emotionally. MOB reports a friend named Selina and MOB?s grandmother are also supportive. ASSESSMENT: MOB able to give appropriate response to shaken baby prevention and safe sleeping. MOB aware of depression, and aware that struggles with depression. Patient reports to have most supplies for baby and will be getting a breast pump. MOB also has WIC for formula if needed. Patient reporting desire to care for baby and to feel a connection with the baby. Patient reports willingness to go to her mother?s home at discharge for some extra help. Patient also receptive to referrals for counseling. Patient willingly answered mental health questions, really was cooperative the entire time of social work visit. Patient compered depression screening and suicide screening (see other social work notes dated this date). Patient expresses understanding that this sports book writer will be calling children service based on history, drug use in , and mental health history. Patient reports had thoughts children services would be involved but hopes that will not take the baby. Support provided to MOB. Safe Plan of Care for infant related to substance use: MOB denying intent to use drugs gain, but if something changed would make sure the children were in the care of MOB?s parent and would not care for children under the influence. PLAN: Social Work to follow. Will be making mental health referral and children services referrals. -ALEJA Ba, MALA
[2018-05-31 17:03] VITALS: BP 100/51; PULSE 75; RESP 16; TEMP 36.8
[2018-05-31] MEDS: Acetaminophen 500 MG Tablet 1000 MG PO (19:23)
[2018-05-31 20:44] VITALS: BP 103/42; PULSE 92; RESP 18; TEMP 36.5; O2SAT 97
[2018-05-31 23:44] VITALS: BP 106/48; PULSE 84; RESP 18; TEMP 36.6; O2SAT 97
[2018-06-01] MEDS: Ibuprofen 600 MG Tablet PO ×2 (04:56→16:46)
[2018-06-01 05:06] VITALS: BP 104/46; PULSE 65; RESP 18; TEMP 36.4; O2SAT 98
[2018-06-01 08:00] VITALS: BP 106/48; PULSE 67; RESP 24; TEMP 36.8
--- NOTE | 2018-06-01 09:19 | PCM.PN.OB ---
Patient Problems: Active and Suspected Problems Anemia affecting , antepartum (Acute) Subjective: Doing well per patient and nursing staff. Voiding and passing flatus. Emotionally doing well. Mother is trying to get patient appointment for counseling when she leaves hospital. No current thoughts of self harm, SI/HI or plans. States, My emotions are usually worse the second day. Denies any headaches, visual changes, chest pain, SOB, increased pain, leg pain, or increased bleeding or clots. Planning D/C home tomorrow. - Physical Exam General: Alert, Oriented x3, Cooperative HEENT: Atraumatic, Normocephalic Lungs: Clear to auscultation, Normal air movement, No rhonchi, No wheeze Cardiovascular: Regular rate, Regular Rhythm, No murmurs Abdomen: - - Fundus firm 2 below U. Extremities: No edema Neurological: Deep Tendon Reflexes 2+/4 and Symmetrical Psych/Mental Status: Normal Affect, Appropriate Vital Signs Temp Pulse Resp BP Pulse Ox 97.6 F L 65 18 104/46 L 98 06/01/18 05:06 06/01/18 05:06 06/01/18 05:06 06/01/18 05:06 06/01/18 05:06 Oxygen Delivery Method Room Air Weight: 159 lb 6 oz Body Mass Index (BMI) 27.3 Finger Stick Blood Glucose 99 Intake and Output for Last 24 Hours 05/30/18 05/31/18 06/01/18 23:59 23:59 23:59 Intake Total 2348 / 2348 Output Total 450 / 450 Balance 1898 / 1898 Medical Necessity - Tobacco Use Smoking Status: Former smoker Assessment/Plan All Active Problems Late care affecting in third trimester (Acute) Pelvic pain affecting in third trimester, antepartum (Acute) Anemia affecting , antepartum (Acute) A:PPD #1 and bottle feeding P: 1) food and nutrition services supervisor consult, unsure if baby will go home with mother or grandmother 2) Pain management 3) Discharge home tomorrow.
[2018-06-01] MEDS: Senna/Docusate Sodium 1 Tablet PO (10:33)
[2018-06-01] MEDS: Citalopram 20 MG Tablet PO (10:36)
[2018-06-01 13:11] VITALS: BP 104/49; PULSE 77; RESP 16; TEMP 37.1
[2018-06-01 14:42] LABS: Hematocrit 32.1 % (37-47); Hemoglobin 9.9 g/dl (12.0-15.0); Mean Corp Hgb Conc 30.8 g/gl (32-36); Mean Corpuscular Hgb 25.8 pg (27.0-32.0); Mean Corpuscular Volume 83.8 fL (81-99); Mean Platelet Vol. 9.6 fl (6.2-12.0); Platelet Count 212 K/mm3 (150-450); RBC Distribution Width SD 81.4 fl (35.1-43.9); Red Blood Count 3.83 M/mm3 (4.2-5.4); White Blood Count 8.1 K/mm3 (4.4-11.0)
[2018-06-01 14:43] LABS: Scan Indicated on CBC? Y/N YES- FLAGS NOTED
[2018-06-01 15:07] LABS: Differential Comment SCANNED
--- NOTE | 2018-06-01 16:50 | NURSING ---
sekou has been alone with the baby most of the day.. She has breastfed and also given bottles. She has been reminded several times to check the diaper to see if it needs changed. She has been observed handling the baby well, burping and holding.
--- NOTE | 2018-06-01 17:00 | CASEMGMT ---
Social Work Labor and Delivery Unit Summary: 1230: Called [facility] ([facility]) and spoke with Rianna in the intake department. Referral given due substance exposed infant in utero, maternal mental health concerns, noncustodial of other children and previous children services involvement. Brief maternal and infant histories provided, including drugs screen results this , housing instability issues, and limited appearing support system, though mother of baby does identify her mother as a strong support person. Per Rianna, this referral will be screened in and Milla Lala will be assigned machine operator hop worker. Plan for [facility] to come to hospital. Met with MOB in room. Upon entering the room, MOB holding baby, sitting up in bed. MOB at first with tense appearing facial expression, though smiled and relaxed as conversation continued. MOB reports that her mother never came to stay last night as had too many orders for home business to fill yesterday. MOB reports still planning to go to MOB?s parents? home at discharge. MOB reports to be working on both breast feeding and then finishes feedings with bottles. Updated MOB of call to [facility] today, and plan for Milla to come and see MOB. Let MOB know that [facility] will need to verify that MOB can go to MOB?s parental home. MOB asked if [facility] will be taking the baby. Let MOB know that at this time no one has said this to this global technical writer, but that due to MOB?s history, [facility] will want to follow in the least to assure that MOB can meet baby?s needs, which directly relates to MOB caring for self and getting help and support. MOB agrees to referral to [facility]. MOB also agrees to this global technical writer?s suggestion for a crisis outreach call throught [facility] upon home going. 1430: Milla from [facility] to unit to see MOB. After meeting, Milla reports that [facility] okay with plan for MOB to take baby to MOB?s parents? home. Milla is articulation officer this weekend and would like to be called with an update on how today and the evening goes, and if there are changes then [facility] can potentially reevaluate plan if indicated. [facility] will be following this case in the community. Updated nursing staff and heat seal operator. Called [facility] and set MOB up wiht an intake assessment for 06-20-18 at 1500 with Aurea Palacios. 1545: Spoke with Alayna from [facility], explained MOB's situation, recent suicidal thoughts and just having a baby. Set up crisis call fro 0 on Monday evening. 1700: Met with MOB and parents Denisa and Mikal present in the room. Asked Mikal to leave as this global technical writer had only received permission to speak freely in front of Denisa. Mikal left without issue. [place] holding baby during social work visit. Broached with Denisa the intention for MOB and baby to go to [place]? home at discharge from the hospital. [place] reports this is agreeable. Denisa reports [facility] called Denisa today to confirm plan. Denisa asks if it is normal for children services to get involved for mental health and wondered if there are other reasons for involvement. MOB voiced that MOB?s Armani may be an issue as well as that MOB used drugs at the beginning of the . Let Denisa know it is standard protocol to make referrals for babies exposed to drugs, that referrals are investigated based on concerns and risk factors present. Broached that MOB has several risk factors and that children services will want to see that MOB is able to care for self and for baby. Answered family?s questions as able. Provided MOB with follow up appointments for [facility] and also the crisis phone call through [facility] this global technical writer set up. MOB voices agreement. Provided with community resource information as well. Assessment: MOB cooperative and pleasant during social work visits today. Eye contact within normal limits. MOB smiling, talking in a quiet childlike voice, more direct however when speaking to her mother. MOB continues to contract for safety. No identified or voiced thoughts of suicide or plan for such at this time or since hospitalization. MOB agrees that at home going, should thoughts of suicide surface, MOB will let Denisa know. [place] present when MOB voiced agreement to talk to Denisa about suicide should this become an issue. Denisa presents as supportive towards MOB as evidenced by encouragement to MOB to get support for emotional help. Denisa did ask this global technical writer if it would be held against MOB should MOB seek out inpatient treatment. Educated MOB that if this is something that MOB needs, that this global technical writer would look at this as something healthy and a positive step for MOB. Broached with MOB that seeking out help and support voluntarily, getting help before things get severe is always better than reacting to a crisis. MOB smiled and expressed understanding. Supportive encouragement offered to MOB today. PLAN: MOB and baby to home at discharge with plan for family to go to MOB?s parental home for a short time. [facility] to follow and world liked to be called on 06-02-18 for an update. Hospital social services counselor for Monday is aware and has number to call. MOB has been given appointment at [facility] with Aurea palacios PhD for 06-20-18 at 1500 and then a crisis outreach call on 06-02-18 at 1900 at home. Provided with [facility] resources list, depression packet, and information on [facility] programing/brochure that included head start information, handout on Help Me Grow. MOB voices agreement with plan. -ALEJA Ba, SCALLOP SHUCKER
[2018-06-01 20:00] VITALS: BP 112/64; PULSE 82; RESP 16; TEMP 36.4; O2SAT 98
[2018-06-02] MEDS: Ibuprofen 600 MG Tablet PO (02:25)
[2018-06-02 02:30] VITALS: BP 110/64; PULSE 69; RESP 14; TEMP 36.9; O2SAT 99
[2018-06-02 09:56] VITALS: BP 111/68; PULSE 68; RESP 16; TEMP 36.6
--- NOTE | 2018-06-02 10:13 | CASEMGMT ---
LISA spoke with RN who did not have any updates. LISA called Children Services worker, Milla Lala. She said the plan is still for mom and baby to go home with grandma. She spoke with grandma last night and everything is good. LISA told her Porsha set up an appt for mother of baby at 180 Jun 20 to see Aurea Palacios PhD and Crisis will call mom fauzia at 7p to make sure she is ok. Milla thanked LISA for the update. RN will be notified. Plan: Mom and baby to be d/c to grandma's home. [facility] and [facility] Crisis team are both involved. Keerthi HARGROVE MSW
[2018-06-02] MEDS: Senna/Docusate Sodium 1 Tablet PO (10:20)
[2018-06-02] MEDS: Citalopram 20 MG Tablet PO (10:20)
[2018-06-02 14:00] VITALS: BP 104/55; PULSE 73; RESP 14; TEMP 36.8
--- NOTE | 2018-06-02 14:29 | PN.OBGYN_ITS ---
Patient Problems: Active and Suspected Problems Anemia affecting , antepartum (Acute) Subjective: Doing well per patient and nursing staff. . Ambulating and taking PO without difficulty. Emotions stable, denies any thoughts of self harm, SI/HI, or thoughts of harming others. Planning D/C home today. Denies MENDOZA,vis chg's, CP,SOB,leg pain, increased vaginal bleeding or clots. Pain controlled. - Physical Exam General: Alert, Oriented x3, Cooperative HEENT: Atraumatic, PERRLA Lungs: Clear to auscultation, Normal air movement, No rhonchi, No wheeze Cardiovascular: Regular rate, Regular Rhythm, No murmurs Abdomen: Bowel Sounds Present Extremities: No edema Neurological: Deep Tendon Reflexes 2+/4 and Symmetrical Psych/Mental Status: Normal Affect, Appropriate Vital Signs Temp Pulse Resp BP Pulse Ox 97.9 F 68 16 111/68 99 06/02/18 09:56 06/02/18 09:56 06/02/18 09:56 06/02/18 09:56 06/02/18 02:30 Oxygen Delivery Method Room Air Weight: 159 lb 6 oz Body Mass Index (BMI) 27.3 Finger Stick Blood Glucose 99 Intake and Output for Last 24 Hours 05/31/18 06/01/18 06/02/18 23:59 23:59 23:59 Intake Total 2348 / 2348 Output Total 450 / 450 Balance 1898 / 1898 Laboratory Tests Past 24 Hrs 06/01/18 14:20 WBC 8.1 RBC 3.83 L Hgb 9.9 L Hct 32.1 L MCV 83.8 MCH 25.8 L MCHC 30.8 L RDW 28.0 H RDW Differential 81.4 H Plt Count 212 MPV 9.6 Differential Comment SCANNED Medical Necessity - Tobacco Use Smoking Status: Former smoker Assessment/Plan All Active Problems Late care affecting in third trimester (Acute) Pelvic pain affecting in third trimester, antepartum (Acute) Anemia affecting , antepartum (Acute) A:PPD #2 Depression P: 1) Patient doing well, increased anxiety this am due to thoughts of her being alone but feeling better. Reviewed asking for help. Has appointment scheduled with 180 and mother assisting with counseling appointment. 2) Routine and instructions given. 3) Planning to go home with her mother and baby to go to mothers house. livestock farmworker and children's services is involved with her care and management. 4) Discharge home today. Follow up in 2 weeks and 6 weeks .
--- NOTE | 2018-06-02 14:36 | DCINST_ITS ---
Discharge Diet: No Restrictions Discharge Activity: Return to Normal Activity May resume sexual activity in: 4-6 weeks Weight Bearing Status: Full weight bearing Call your doctor if your incision/area has: Continuous Slow Oozing, Sudden Increased Bleeding, Increased Pain/ Swelling, Increased Redness, Foul Smelling Discharge Call your doctor if you observe: Fever of 101 or Higher, Numbness or Tingling, Change in Color, Inability to urinate, Inability to have a bowel movement, Using more than one pad per hour, Shortness of breath, Chest pain, Increased palpitations (irregular heartbeat), Calf discomfort, Uncontrolled pain Additional Instructions: If you experience any of the following, contact your healthcare provider. * Bleeding that soaks a pad every hour for 2 hours * Fever 100.4 or higher * Unrelieved incision or abdominal pain * Swelling, redness, discharge or bleeding from your incision or episiotomy site * Your incision begins to separate * Problems urinating (including inability to urinate or burning while urinating). * Visual changes * Severe headache * Flu-like symptoms * Pain or redness in one of both of your breasts * Pain, warmth, tenderness or swelling in your legs, especially the calf area * Frequent nausea and vomiting * Symptoms of depression or anxiety If you experience any of the following, call 911 or go to the nearest Emergency Room. * Chest pain * Problems breathing * Seizure activity * Partial or complete paralysis of a body part, slurred speech, weakness or drooping of the face, or a sudden inability to walk or hold your balance Allergies/Adverse Reactions: Allergies No Known Allergies Allergy (Verified 05/30/18 20:05) cats Medications to take at Discharge Vit No.130/Iron/Folic [ Tablet] 1 each PO DAILY 03/12/18 Citalopram [Celexa] 20 mg PO DAILY 05/30/18 Acetaminophen [Tylenol] 1,000 mg PO Q8H PRN PRN tablet 06/02/18 Ibuprofen [Motrin] 600 mg PO Q6H PRN PRN #30 tablet 06/02/18 The following prescriptions were given: Ibuprofen [Motrin] 600 mg PO Q6H PRN PRN #30 tablet PRN Reason: Mild Pain (-08/19) Please Follow Up With: Blanca Callahan CNM When: Call to make an appointment with your doctor in 2 weeks and 6 weeks. If you had elevated Blood Pressure or 4th degree laceration you will need to be seen in 2 weeks. Primary Care Physician: Care Physician,No Primary [Primary Care Provider] - Test Results: Test results from this visit will be discussed in further detail at your follow- up appointment, if applicable.
[2018-06-02 18:00] VITALS: BP 117/71; PULSE 82; RESP 16; TEMP 36.2
--- NOTE | 2018-06-02 19:35 | NURSING ---
1930 Discharged to home with baby in wheelchair to car. States she wants to go home and feels like she can take care of herself and her baby.
== END 2018-06-02 20:00 | disposition home or self-care (01) | DRG 560 ==
PROVIDERS: Advanced Practice Midwife; Admitting Provider Obstetrics & Gynecology; Referring Provider Obstetrics & Gynecology; Visit Provider Obstetrics & Gynecology
DX: O99.02 Anemia complicating childbirth (principal); D64.9 Anemia, unspecified; F32.9 Major depressive disorder, single episode, unspecified; O99.344 Other mental disorders complicating childbirth; Z37.0 Single live birth; Z3A.40 40 weeks gestation of pregnancy; Z87.891 Personal history of nicotine dependence
CPT/HCPCS: 59025; 59050; 80307; 85027; 86850; 86900; 99218; J7120; A4216; G0378; J2405

== ENCOUNTER 2018-11-24 21:25 | Emergency (ER) | payer MEDICAID, SELFPAY ==
[2018-11-24 21:26] VITALS: BP 113/80; PULSE 72; RESP 18; TEMP 36.1; O2SAT 98; BMI 22.3
--- NOTE | 2018-11-24 22:05 | ED.VISSUMM ---
- ER Visit Summary Date of Service: 11/24/18 Chief Complaint: Suprapubic abdominal pelvic pain History of Present Illness: The patient is a 23 F past medical history of anemia and prior seizures currently on no medications for the seizures. Patient states that she has had pubic and pelvic abdominal pain for approximately last 3 weeks. Gradual. She denies any vaginal bleeding or discharge. Last menstrual. Ended approximately 3 days ago. Associated nausea no vomiting. No diarrhea. No dysuria or hematuria. No fever. No constipation. No vaginal bleeding or discharge. No history of STD. States she is sexually active and has not been having pain with intercourse. Physical Examination: Vital signs stable afebrile. Young female no distress. HEENT exam unremarkable. Neck nontender. Lungs clear to auscultation bilaterally. Heart regular rhythm no murmur. Abdomen soft. Nondistended. Normal bowel sounds. No peritoneal signs. Tender in the suprapubic region and bilateral lower quadrants. No hernias. No masses. No signs of obstruction. Moving all 4 extremities. Neurovascular intact. Back nontender. Neurologically she is awake and alert with no focal motor deficits. Test Results: CBC with differential shows normal lites 7. Hemoglobin 12 which is. Electrolytes unremarkable potassium 3.4. Normal creatinine gap. Serum test negative. Urinalysis 5-10 white cells 3+ bacteria. No nitrates. This will be treated as a UTI. Urine culture was sent. Emergency Department Course and Treatment: Young female with suprapubic abdominal pelvic pain. Treatment Plan: Repeat exam patient is doing well. No change. She will be given 1 dose of Bactrim here. Placed on Bactrim DS p.o. 1 twice daily for 5 days. Follow-up with your doctor. Disposition: Discharge Impression: Acute pubic abdominal and pelvic pain secondary to acute UTI (cystitis) This note was generated with [employer] dictation software. It may contain incorrect words, spelling, and punctuation that were not noted in review of the chart prior to signing ED Disposition - Plan for ED Patient: Referrals: Care Physician,No Primary [Primary Care Provider] -
[2018-11-24 22:14] LABS: Mucous, Urine 0 SEEN /hpf (<or=2+); Red Blood Cells-Urine 0 SEEN /hpf (0-5)
[2018-11-24 22:18] LABS: Absolute Lymphocyte Count 2.38 X10^3/ul (0.83-4.51); Absolute Neutrophil Count 4.4 X10^3/uL (2.0-7.7); Basophil# 0.02 X10^3/uL; Basophil% 0.3 % (0-1); Eosinophil# 0.19 X10^3/uL; Eosinophils% 2.6 % (0-5); Hematocrit 35.8 % (37-47); Hemoglobin 12.1 g/dl (12.0-15.0); Lymphocyte # 2.38 X10^3/ul (4.0); Lymphocyte % 32.1 % (19-41); Mean Corp Hgb Conc 33.8 g/gl (32-36); Mean Corpuscular Hgb 29.1 pg (27.0-32.0); Mean Corpuscular Volume 86.1 fL (81-99); Mean Platelet Vol. 10.5 fl (6.2-12.0); Monocyte# 0.42 X10^3/uL; Monocyte% 5.7 % (0-10); Neutrophil % 59.3 % (47-70); Platelet Count 303 K/mm3 (150-450); RBC Distribution Width CV 12.8 % (11.6-14.6); RBC Distribution Width SD 40.6 fl (35.1-43.9); Red Blood Count 4.16 M/mm3 (4.2-5.4); White Blood Count 7.4 K/mm3 (4.4-11.0)
[2018-11-24 22:21] LABS: Color, Urine Yellow (Yellow); Glucose, Dipstick Normal (Normal); Ketone-Dipstick Negative (Negative); Leukocyte Esterase-Dipstick 25 /ul (Negative); Nitrite-Dipstick Negative (Negative); Occult Blood-Urine Negative /ul (Negative); Protein-Dipstick Negative (Negative); Specific Gravity, Urine 1.025 (1.002-1.030); Urine Bilirubin Dipstick Negative (Negative); Urine Clarity Clear (Clear); Urine Urobilinogen Normal (Normal)
[2018-11-24 22:21] LABS: Internal QC Validated? YES +Cl - CLEAR BKGD; POSITIVE COUNT NO; POSITIVE DIFFERENTIAL NO; POSITIVE MORPHOLOGY NO
[2018-11-24 22:25] LABS: Bacteria 3+ /hpf (None Seen); Squamous Epithelial Cells - UA 0-5 SEEN /hpf (5-10); White Blood Cells 5-10 SEEN /hpf (0-5)
[2018-11-24 22:31] LABS: Anion Gap 5 (5-15); BUN 16 mg/dL (7-18); BUN/Creat Ratio 31.5 RATIO (10-20); Chloride 107 mmol/L (98-107); Creatinine, Serum 0.51 mg/dL (0.55-1.02); EST Glomerular Filtration Rate 157 mL/min (>60); Est Glom Filt Rate - Afr Amer 191 mL/min (>60); Estimated Creatinine Clearance 146.88 ml/min; Glucose 93 mg/dL (74-106); Potassium 3.4 mmol/L (3.5-5.1); Sodium Level 139 mmol/L (136-145)
[2018-11-24 22:32] LABS: Pregnancy, Serum, hCG Quali. NEGATIVE Negative
--- NOTE | 2018-11-24 22:59 | ED.DEP ---
ED Disposition - Plan for ED Patient: Disposition: Home or Assisted Living Instructions: ED UTI Cystitis Female Prescriptions: Sulfamethoxazole/Trimethoprim [Bactrim Ds Tablet] 1 ea PO BID #10 tab Referrals: Isra Van MD [STAFF PHYSICIAN] - 1 Week if not improving Additional Instructions: Fluids and cranberry juice. Diagnosed a urinary tract infection Take antibiotic 1 pill twice a day for the next 5 days. Follow-up if not improving return if worse.
[2018-11-24] MEDS: Smz/Tmp Ds Tablet 1 TABLET PO (23:04)
[2018-11-24 23:05] VITALS: BP 96/57; PULSE 77; RESP 16; O2SAT 100
== END 2018-11-24 23:10 | disposition home or self-care (01) ==
PROVIDERS: Emergency Provider Emergency Medicine
DX: N39.0 Urinary tract infection, site not specified (principal); R10.2 Pelvic and perineal pain; D64.9 Anemia, unspecified
CPT/HCPCS: 80048; 81001; 84703; 85025; 87077; 87086; 87088; 87186; 99283; A4216

== ENCOUNTER 2019-05-03 10:58 | Emergency (ER) | payer MEDICAID, SELFPAY ==
[2019-05-03 10:59] VITALS: BP 118/60; PULSE 84; RESP 18; TEMP 36.6; O2SAT 99; BMI 21.4
[2019-05-03] MEDS: Ondansetron 4 MG/2 ML Vial IV (11:34)
[2019-05-03] MEDS: 0.9% Normal Saline 1,000 ML 1000 ML IV (11:34)
[2019-05-03 11:38] VITALS: BP 102/59; BP 110/99; BP 113/69; PULSE 103; PULSE 70; PULSE 79
[2019-05-03 11:41] LABS: Pregnancy, Serum, hCG Quali. POSITIVE Negative
[2019-05-03 11:42] LABS: Internal QC Validated? YES +Cl - CLEAR BKGD
[2019-05-03 11:59] LABS: Anion Gap 6 (5-15); BUN 9 mg/dL (7-18); Calcium,Total 8.9 mg/dL (8.5-10.1); Chloride 107 mmol/L (98-107); EST Glomerular Filtration Rate 159 mL/min (>60); Est Glom Filt Rate - Afr Amer 193 mL/min (>60); Estimated Creatinine Clearance 148.53 ml/min; Glucose 83 mg/dL (74-106); Potassium 3.5 mmol/L (3.5-5.1); Sodium Level 139 mmol/L (136-145)
--- NOTE | 2019-05-03 12:38 | ED.VIS.GEN ---
History of Present Illness Chief Complaint: Nausea/Vomiting Detail of Chief Complaint: 2 weeks Informant: Patient Onset: Weeks - 2 weeks Context: Sudden Onset Timing: Intermittent Quality: Nausea and vomiting Location: Not applicable Current Severity: Mild Maximum Severity: Severe Worsened by: Nothing Relieved by: Nothing Associated Symptoms: No symptoms of Narrative: Patient is a 24-year-old G1, P1 female who has irregular periods who presents with nausea vomiting without diarrhea. She denies fever, chills or night sweats. She states she has performed 3 home tests which were all negative. She denies headache, visual, ocular auditory symptoms. She denies rhinorrhea, congestion or postnasal drainage. Denies sore throat or difficulty breathing. She denies chest pain. She denies abdominal pain. Denies food intolerance. She denies dysuria, frequency, urgency or hematuria. She denies back pain. She denies any other symptoms. She reports no ill contacts. Prior similar symptoms: No Recent Illness/Hospitalization: No - Past Medical History (1) History of depression Status: Chronic (2) Support system deficit Status: Chronic Past Medical History - Allergies and Home Meds Allergies/Adverse Reactions: Allergies No Known Allergies Allergy (Verified 05/03/19 11:01) cats Primary Care Physician: Care Physician,No Primary [Primary Care Provider] - Surgical History: no surgical history Lives: With Family Smoking Status: Never smoker Alcohol: None Drugs: None Review of Systems General: Reports: Chills, Malaise. Denies: Fever, Subjective, Sweats Eyes: Denies: Visual changes - bilaterally, Blurred Vision - bilaterally, Diplopia ENT: Denies: Rhinorrhea, Sore throat Cardiovascular: Denies: Chest pain, Palpitations Respiratory: Denies: Dyspnea, Cough, Dyspnea on exertion Gastrointestinal: Reports: Nausea, Vomiting. Denies: Abdominal pain, Diarrhea, Constipation, Melena, Hematochezia, -, - Genitourinary: Denies: Dysuria, Hematuria, Frequency Musculoskeletal: Denies: Myalgias, Arthralgias, Neck pain, Back pain, Swelling, Extremity Pain, -, - Skin: Denies: Rash, Wounds Neurological: Reports: Weakness. Denies: Headache, Numbness Psych: Reports: Depression Hematologic: Denies: Easy bruising, Easy bleeding Physical Exam Vital Signs/Narrative: Vital Signs Temp Pulse Pulse Pulse Pulse Resp BP 05/03/19 11:38 70 79 103 H 05/03/19 10:59 98 F 84 18 118/60 BP BP BP Pulse Ox 05/03/19 11:38 102/59 L 113/69 110/99 H 05/03/19 10:59 99 Inital Vital Signs reviewed: Yes General: Well nourished, Well developed, No Acute Distress Head: Normocephalic, Atraumatic Eyes: Perrl, EOMI ENT: No rhinorrhea, Dry mucous membranes Neck: Supple, Nontender Cardiovascular: Regular rate, Regular rhythm, No murmurs, Normal S1, Normal S2 Respiratory: No distress, CTA bilaterally, Chest nontender Abdomen: Soft, Nontender, Nondistended, Normal bowel sounds, No masses Back: Nontender, Normal Inspection. Negative for: CVA tenderness Extremities: Nontender, No edema Skin: Normal color, No rash Neurological: Alert, Oriented x3, Cranial nerves II-XII grossly intact, Normal Strength, Normal Sensation, Normal DTR, Normal Gait Psychological: Normal affect, Normal Mood Diagnostic/Tx/Re-eval Laboratory Results 05/03/19 05/03/19 11:25 11:25 Sodium 139 Potassium 3.5 Chloride 107 Carbon Dioxide 26.0 Anion Gap 6 BUN 9 Creatinine 0.50 L Estim Creat Clear Calc 148.53 Est GFR (MDRD) Af Amer 193 Est GFR (MDRD) Non-Af 159 BUN/Creatinine Ratio 18.0 Glucose 83 Calcium 8.9 Serum , Qual POSITIVE Basic metabolic panel is unremarkable with no evidence of significant dehydration. CO2 and anion gap are normal. - Medical Decision Making Nausea and vomiting only and abnormal menses will obtain serum to evaluate for even though she is had to home negative patency test. Based on the amount of vomiting IV was established and basic metabolic panel was obtained as well to assess electrolytes and renal function. Patient feels better after liter fluid. P.o. challenge has been ordered. She is referred to the [facility] where she is received her OB care in the past. Her test was positive. The basic metabolic panel was unremarkable. As of 1409 patient not had any nausea vomiting after p.o. challenge. Plan is to discharge to home and follow-up with jacket preparer at [facility] where she has been seen in the past. ED Disposition - Plan for ED Patient: Disposition: Home or Assisted Living Diagnosis: First trimester , Nausea and vomiting due to , Mild dehydration Instructions: Hyperemesis Gravidarum (Severe Morning Sickness) Prescriptions: Ondansetron [Zofran Odt] 4 mg PO Q8H PRN PRN #10 tab PRN Reason: Nausea Transmission Status: Pending to [id number] Referrals: Care Physician,No Primary [Primary Care Provider] - Hilda Blackburn CNM [Certified Nurse Flooring Machine Operator] - 3-5 Days
[2019-05-03 13:02] VITALS: BP 90/60; PULSE 77; RESP 18; O2SAT 100
[2019-05-03 13:34] VITALS: BP 99/70; PULSE 76; RESP 18; O2SAT 100
== END 2019-05-03 14:39 | disposition home or self-care (01) ==
PROVIDERS: Emergency Provider Emergency Medicine
DX: O26.891 Other specified pregnancy related conditions, first trimester (principal); R11.2 Nausea with vomiting, unspecified; E86.0 Dehydration; O99.341 Other mental disorders complicating pregnancy, first trimester; F32.9 Major depressive disorder, single episode, unspecified; Z3A.00 Weeks of gestation of pregnancy not specified
CPT/HCPCS: 80048; 84703; 96361; 96374; 99285; J7030; A4216; J2405

== ENCOUNTER 2019-11-27 21:51 | Outpatient (CLI) | payer MEDICAID, SELFPAY ==
[2019-11-27] VITALS (8 sets, daily range): BP systolic 98; BP diastolic 52; PULSE 96–116; TEMP 36.4; O2SAT 97–99; BMI 25.8
[2019-11-27 23:34] LABS: Color, Urine Yellow (Yellow); Glucose, Dipstick Normal (Normal); Ketone-Dipstick 5 mg/dl (Negative); Leukocyte Esterase-Dipstick 25 /ul (Negative); Nitrite-Dipstick Negative (Negative); Occult Blood-Urine Negative /ul (Negative); Protein-Dipstick 30 mg/dl (Negative); Specific Gravity, Urine 1.025 (1.002-1.030); Urine Bilirubin Dipstick 1 mg/dL (Negative); Urine Clarity Clear (Clear); Urine Urobilinogen 8 mg/dl (Normal)
[2019-11-27 23:50] LABS: Amphetamine Urine VISTA NEGATIVE (<1000 ng/mL); Barbiturate Urine VISTA NEGATIVE (< 200 ng/mL); Benzodiazepine Urine VISTA NEGATIVE (< 200 ng/mL); Cocaine Urine VISTA NEGATIVE (< 300 ng/mL); Ecstacy Urine VISTA NEGATIVE (< 500 ng/mL); Methadone Urine VISTA NEGATIVE (< 300 ng/mL); PCP Urine VISTA NEGATIVE (< 25 ng/mL); THC Urine VISTA NEGATIVE (< 50 ng/mL); Vista UDS pH Range 5
[2019-11-28 00:02] VITALS: PULSE 91; O2SAT 99
[2019-11-28 00:03] VITALS: BP 104/51; PULSE 87; TEMP 36.2
--- NOTE | 2019-11-28 06:33 | OB.TRI.HP_ITS ---
- Problem List (1) Pelvic pain affecting in third trimester, antepartum Status: Acute (2) 35 weeks gestation of Status: Acute History of Present Illness Date of Service: 11/27/19 Was patient seen by the physician?: No Reason For Visit: R/O Date of Service: 11/27/19 Final BEATRIZ: 12/30/19 Final BEATRIZ Source: LMP Gestational age: 35 Weeks and 3 Days History of Present Illness: Patient is a 24 year old at 35.2 weeks gestation that presented to triage for lower pelvic pain and pressure that has been going on for most of the day. Seen in the office and swabbed for BV/Yeast earlier today. Allergies No Known Allergies Allergy (Verified 11/27/19 23:23) cats Laboratory Studies: Laboratory Tests 11/27/19 11/27/19 Range/Units 23:15 23:15 Urine Color Yellow (Yellow) Urine Clarity Clear (Clear) Urine pH 6.0 (5.0 - 8.0) Ur Specific [place] 1.025 (1.002-1.030) Urine Protein 30 H (Negative) mg/dl Urine Glucose (UA) Normal (Normal) mg/dl Urine Ketones 5 H (Negative) mg/dl Urine Occult Blood Negative (Negative) /ul Urine Nitrite Negative (Negative) Urine Bilirubin 1 H (Negative) mg/dL Urine Urobilinogen 8 H (Normal) mg/dl Ur Leukocyte Esterase 25 H (Negative) /ul Urine Opiates Screen NEGATIVE (< 300 ng/mL) Urine Methadone Screen NEGATIVE (< 300 ng/mL) Ur Barbiturates Screen NEGATIVE (< 200 ng/mL) Ur Phencyclidine Scrn NEGATIVE (< 25 ng/mL) Ur Amphetamines Screen NEGATIVE (<1000 ng/mL) U Methamphetamin-MDMA NEGATIVE (< 500 ng/mL) U Benzodiazepines Scrn NEGATIVE (< 200 ng/mL) Urine Cocaine Screen NEGATIVE (< 300 ng/mL) U Cannabinoids Screen NEGATIVE (< 50 ng/mL) Ur Drug Screen Comment Review of Systems Gastrointestinal: Reports: Abdominal Pain Genitourinary: Reports: Hesitancy Psychiatric: Reports: Anxiety Physical Exam Vitals: Vital Signs Temp Pulse BP Pulse Ox 97.2 F L 87 104/51 L 99 11/28/19 00:03 11/28/19 00:03 11/28/19 00:03 11/28/19 00:02 NST - FHR Rate Baby A Baseline: 125 Variability:: Moderate Accelerations:: 15 x 15 Decelerations:: None NST Reactive:: Yes FHR Category:: Category I Uterine Activity:: irritability Impression/Plan 24 YO at 35.2 weeks gestation with lower pelvic pressure UA - sent (see results) Urine Culture sent Suspect UTI- will treat with Macrobid 100 mg BID x 7 days D/C home and patient to follow in office Dr. Healy agrees with plan of care
== END 2019-11-28 00:45 | disposition home or self-care (01) ==
LOC: WPOUT 21:58 → OBT 21:59
PROVIDERS: Visit Provider Advanced Practice Midwife
DX: O26.893 Other specified pregnancy related conditions, third trimester (principal); R10.2 Pelvic and perineal pain; Z3A.35 35 weeks gestation of pregnancy
CPT/HCPCS: 59025; 59050; 80307; 81002; 87086; 87088; 99218; G0378

== ENCOUNTER → 2019-12-25 10:44 | Outpatient (CLI) | payer MEDICAID, SELFPAY ==
[2019-11-27 23:21] VITALS: BMI 25.8
== END ==
PROVIDERS: Referring Provider Obstetrics & Gynecology; Visit Provider Obstetrics & Gynecology
DX: O09.90 Supervision of high risk pregnancy, unspecified, unspecified trimester (principal); Z3A.00 Weeks of gestation of pregnancy not specified
CPT/HCPCS: 87635; C9803; G2023; U0003

== ENCOUNTER 2019-12-30 01:30 | Inpatient (IN) | payer MEDICAID, SELFPAY ==
[2019-11-27 23:21] VITALS: BMI 25.8
[2019-12-30] VITALS (20 sets, daily range): BP systolic 90–114; BP diastolic 44–63; PULSE 55–208; RESP 14–16; TEMP 36.4–36.9; O2SAT 82–99; BMI 25.7
[2019-12-30] MEDS: Lactated Ringers 1,000 ML 50 ML IV (01:45)
[2019-12-30 02:00] LABS: Absolute Lymphocyte Count 2.03 X10^3/uL (0.83-4.51); Basophil# 0.04 X10^3/uL; Basophil% 0.4 % (0-1); Eosinophil# 0.14 X10^3/uL; Eosinophils% 1.4 % (0-5); Hematocrit 29.7 % (37-47); Lymphocyte # 2.03 X10^3/ul (4.0); Lymphocyte % 20.3 % (19-41); Mean Corp Hgb Conc 30.3 g/dL (32-36); Mean Corpuscular Hgb 23.5 pg (27.0-32.0); Mean Corpuscular Volume 77.5 fL (81-99); Mean Platelet Vol. 11.4 fl (6.2-12.0); Monocyte# 0.74 X10^3/uL; Monocyte% 7.4 % (0-10); NRBC Flagged by Analyzer 0 % (0-5); Platelet Count 224 K/mm3 (150-450); RBC Distribution Width CV 17.3 % (11.6-14.6); RBC Distribution Width SD 48.1 fl (35.1-43.9); Red Blood Count 3.83 M/mm3 (4.2-5.4)
[2019-12-30] MEDS: Oxytocin 30 units/NS 500 ml 30 UNITS/500 ML IV.SOLN 334 UNITS IV (02:30)
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
--- NOTE | 2019-12-30 03:02 | PCM.OPRPT ---
Problem List (1) 40 weeks gestation of Status: Acute (2) Spontaneous onset of labor Status: Acute (3) Active labor Status: Acute (4) Support system deficit Status: Chronic (5) Custody issue Status: Chronic (6) History of suicidal tendencies Status: Chronic (7) History of depression Status: Chronic (8) History of marijuana use Status: Chronic Report of Operation Date of Procedure: 12/30/19 Vaginal Delivery Maternal Presentation: Active Labor Amniotic Membrane Rupture Type: Spontaneous Rupture of Membrane time: 217 Amniotic Fluid Description: Clear Final BEATRIZ: 12/30/19 Gestational age: 40 Weeks and 0 Days Date of Procedure: 12/30/19 Pre-Operative Diagnosis: Spontaneous term labor Post-Operative Diagnosis: Same, live male infant Surgery/ Procedure Performed: Spontaneous Vaginal Delivery Type of Anesthesia: None Description of Procedure: Patient arrived in spontaneous, active labor. Quickly progressed to 10/100/1. S.R.O.M for clear fluid and patient had strong urge to bear down. Delivery of infant head with maternal effort quickly followed by posterior shoulder and rest of body. Infant vigorous and placed on maternal abdomen. Delayed cord clamping completed for over 2 minutes. Cord clamped and boyfriend cut cord. Placed immediately skin to skin with patient. Placenta spontaneously delivered and was intact with a 3 vessel cord. Cord blood collected and sent. Perinum inspected and is intact. Vaginal sweep performed. Fundus firm at U and hemostasis achieved. Patient and infant stable and bonding at this time. Presentation: Vertex Placental Delivery Description: Spontaneous Placenta Disposition: [facility] Cord Vessel Description: 3 Vessels Cord Entanglement: None Estimated Blood Loss: 300 Infant A gender: Male (1 minute): 8 (5 minute): 9 Episiotomy Description: None Laceration: None Medications given after delivery: IV Pitocin
[2019-12-30] MEDS: Acetaminophen 500 MG Tablet 1000 MG PO ×2 (03:48→17:45)
[2019-12-30] MEDS: 0.9% Saline Lock 10 ML Syringe IV (05:21)
[2019-12-30 06:05] LABS: Amphetamine Urine VISTA NEGATIVE (<1000 ng/mL); Barbiturate Urine VISTA NEGATIVE (< 200 ng/mL); Benzodiazepine Urine VISTA NEGATIVE (< 200 ng/mL); Cocaine Urine VISTA NEGATIVE (< 300 ng/mL); Ecstacy Urine VISTA NEGATIVE (< 500 ng/mL); Methadone Urine VISTA NEGATIVE (< 300 ng/mL); PCP Urine VISTA NEGATIVE (< 25 ng/mL); THC Urine VISTA NEGATIVE (< 50 ng/mL); Vista UDS pH Range 6
--- NOTE | 2019-12-30 11:23 | NURSING ---
Encouraged pt to check/change diapers every 2 hours. Pt has been sleeping since I've been on shift. I have not observed mother providing care for . Pt stated she attempted to feed at 0730 but infant gagged and spit up. At 1030 I fed 15 cc SWI in room and did appear spitty and gagged. Infant also had a saturated diaper that I changed at this time.
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
--- NOTE | 2019-12-30 21:26 | NURSING ---
This RN assuming care of patient and infant at this time. Report received from Go HARE.
--- NOTE | 2019-12-30 22:05 | NURSING ---
this rn gave report to aorr RN. that rn to assume care of pt at this time.
[2019-12-31 04:36] VITALS: BP 103/52; PULSE 73; RESP 14; TEMP 36.2
[2019-12-31] MEDS: Ibuprofen 600 MG Tablet PO (07:44)
[2019-12-31 07:45] VITALS: BP 100/50; PULSE 69; RESP 16; TEMP 36.9
--- NOTE | 2019-12-31 08:44 | PCM.PN.OB ---
Patient Problems: Active and Suspected Problems 40 weeks gestation of (Acute) Spontaneous onset of labor (Acute) Active labor (Acute) Subjective: She reports some mild pain but overall doing OK - Physical Exam Vitals/I&O's: Vital Signs Temp Pulse Resp BP Pulse Ox 97.2 F L 73 14 103/52 L 99 12/31/19 04:36 12/31/19 04:36 12/31/19 04:36 12/31/19 04:36 12/30/19 02:58 Oxygen Delivery Method Room Air Weight: 150 lb Body Mass Index (BMI) 25.7 Finger Stick Blood Glucose 99 Intake and Output for Last 24 Hours 12/29/19 12/30/19 12/31/19 23:59 23:59 23:59 Intake Total 535.83 / 535.83 Output Total 300 / 300 Balance 235.83 / 235.83 General: Alert, Oriented x3 Abdomen: Soft, Non Tender, Non-Distended - ff mid & below umb Extremities: No Calf Tenderness Current Medications Acetaminophen (Tylenol) 1,000 mg PO Q8H PRN PRN PRN Reason: Pain Score 1-10/10 Last Admin: 12/30/19 17:45 Dose: 1,000 mg Documented by: Bisacodyl (Dulcolax) 10 mg RECTAL UD PRN PRN Reason: If no BM Dibucaine (Dibucaine) 1 applic TOPICAL TID PRN PRN; Protocol PRN Reason: Discomfort Ferrous Sulfate (Ferrous Sulfate) 325 mg PO DAILY@1200 VIMAL Hydrocortisone (Hytone) 1 applic TOPICAL TID PRN PRN; Protocol PRN Reason: Discomfort Ibuprofen (Motrin) 600 mg PO Q6H PRN PRN PRN Reason: Pain Score 1-10/10 Last Admin: 12/31/19 07:44 Dose: 600 mg Documented by: Methylergonovine Maleate (Methergine) 0.2 mg IM X1 PRN PRN Reason: Excess bleeding/uterine atony Ondansetron HCl (Zofran) 4 mg IV Q4H PRN PRN PRN Reason: Nausea Senna/Docusate Sodium (Senokot-S, Sarahy-Colace) 1 - 2 tablet PO DAILY PRN PRN PRN Reason: Constipation Simethicone (Mylicon) 80 mg PO PCHS PRN PRN Reason: Indigestion/Stomach pain Sodium Chloride () 5 - 15 ml IV UD PRN PRN Reason: SALINE FLUSH Last Admin: 12/30/19 05:21 Dose: 10 ml Documented by: Medical Necessity - Tobacco Use Smoking Status: Never smoker Assessment/Plan All Active Problems Late care affecting in third trimester (Acute) Pelvic pain affecting in third trimester, antepartum (Acute) Anemia affecting , antepartum (Acute) 35 weeks gestation of (Acute) 40 weeks gestation of (Acute) Spontaneous onset of labor (Acute) Active labor (Acute) PPD#1 Heme - iron for anemia of Depression & poor support system - social work consult pending Routine care
[2019-12-31] MEDS: Ferrous Sulfate 325 MG Tablet PO (12:39)
[2019-12-31] MEDS: Acetaminophen 500 MG Tablet 1000 MG PO (12:39)
[2019-12-31 14:27] VITALS: BP 100/50; PULSE 69; RESP 18; TEMP 36.4
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
[2019-12-31 20:45] VITALS: BP 106/53; PULSE 82; RESP 18; TEMP 36.4
[2020-01-01 01:50] VITALS: BP 112/66; PULSE 79; RESP 18; TEMP 36.9
--- NOTE | 2020-01-01 08:15 | PCM.PN.OB ---
Patient Problems: Active and Suspected Problems 40 weeks gestation of (Acute) Spontaneous onset of labor (Acute) Active labor (Acute) Subjective: pt seen at bedside, doing well. pt reports good pain control. lochia mild. voiding w/o difficulty. - Physical Exam Vitals/I&O's: Vital Signs Temp Pulse Resp BP Pulse Ox 98.4 F 79 18 112/66 99 01/01/20 01:50 01/01/20 01:50 01/01/20 01:50 01/01/20 01:50 12/30/19 02:58 Oxygen Delivery Method Room Air Weight: 68.039 kg Body Mass Index (BMI) 25.7 Finger Stick Blood Glucose 99 Intake and Output for Last 24 Hours 12/30/19 12/31/19 01/01/20 23:59 23:59 23:59 Intake Total 535.83 / 535.83 Output Total 300 / 300 Balance 235.83 / 235.83 General: Alert, Oriented x3 Abdomen: Soft, Non Tender, Non-Distended, - - fundus firm Extremities: No Calf Tenderness Current Medications Acetaminophen (Tylenol) 1,000 mg PO Q8H PRN PRN PRN Reason: Pain Score 1-1010 Last Admin: 12/31/19 12:39 Dose: 1,000 mg Documented by: Bisacodyl (Dulcolax) 10 mg RECTAL UD PRN PRN Reason: If no BM Dibucaine (Dibucaine) 1 applic TOPICAL TID PRN PRN; Protocol PRN Reason: Discomfort Ferrous Sulfate (Ferrous Sulfate) 325 mg PO DAILY@1200 VIMAL Last Admin: 12/31/19 12:39 Dose: 325 mg Documented by: Hydrocortisone (Hytone) 1 applic TOPICAL TID PRN PRN; Protocol PRN Reason: Discomfort Ibuprofen (Motrin) 600 mg PO Q6H PRN PRN PRN Reason: Pain Score 1-10/10 Last Admin: 12/31/19 07:44 Dose: 600 mg Documented by: Methylergonovine Maleate (Methergine) 0.2 mg IM X1 PRN PRN Reason: Excess bleeding/uterine atony Ondansetron HCl (Zofran) 4 mg IV Q4H PRN PRN PRN Reason: Nausea Senna/Docusate Sodium (Senokot-S, Sarahy-Colace) 1 - 2 tablet PO DAILY PRN PRN PRN Reason: Constipation Simethicone (Mylicon) 80 mg PO PCHS PRN PRN Reason: Indigestion/Stomach pain Sodium Chloride () 5 - 15 ml IV UD PRN PRN Reason: SALINE FLUSH Last Admin: 12/30/19 05:21 Dose: 10 ml Documented by: Medical Necessity - Tobacco Use Smoking Status: Never smoker Assessment/Plan All Active Problems Late care affecting in third trimester (Acute) Pelvic pain affecting in third trimester, antepartum (Acute) Anemia affecting , antepartum (Acute) 35 weeks gestation of (Acute) 40 weeks gestation of (Acute) Spontaneous onset of labor (Acute) Active labor (Acute) PPD#2, doing well routine care pain mgmt dc home
--- NOTE | 2020-01-01 08:19 | DCINST_ITS ---
Discharge Diet: No Restrictions Discharge Activity: Return to Normal Activity, May not drive while taking narcotic pain medications., May Shower May resume sexual activity in: 4-6 weeks Additional Activity Instructions:: Nothing in the vagina for 4-6 weeks. You may return to work/school in 6 weeks. Call your doctor if your incision/area has: Continuous Slow Oozing, Sudden Increased Bleeding, Increased Pain/ Swelling, Increased Redness, Foul Smelling Discharge Additional Instructions: If you experience any of the following, contact your healthcare provider. * Bleeding that soaks a pad every hour for 2 hours * Fever 100.4 or higher * Unrelieved incision or abdominal pain * Swelling, redness, discharge or bleeding from your incision or episiotomy site * Your incision begins to separate * Problems urinating (including inability to urinate or burning while urinating). * Visual changes * Severe headache * Flu-like symptoms * Pain or redness in one of both of your breasts * Pain, warmth, tenderness or swelling in your legs, especially the calf area * Frequent nausea and vomiting * Symptoms of depression or anxiety If you experience any of the following, call 911 or go to the nearest Emergency Room. * Chest pain * Problems breathing * Seizure activity * Partial or complete paralysis of a body part, slurred speech, weakness or drooping of the face, or a sudden inability to walk or hold your balance Allergies/Adverse Reactions: Allergies No Known Allergies Allergy (Verified 12/30/19 01:49) cats Medications to take at Discharge Ferrous Sulfate [Iron] 325 mg PO DAILY 11/28/19 Vit,Calc76/Iron/Folic [Pnv 29-1 Tablet] 1 ea PO DAILY 11/28/19 Ferrous Sulfate 325 mg PO DAILY@1200 #60 tab 01/01/20 Ibuprofen [Motrin] 600 mg PO Q6H PRN PRN #30 tab 01/01/20 The following prescriptions were given: Ferrous Sulfate 325 mg PO DAILY@1200 #60 tab Transmission Status: Pending to [id number] Ibuprofen [Motrin] 600 mg PO Q6H PRN PRN #30 tab PRN Reason: Pain Score 1-10/10 Transmission Status: [id number] When: Call to make an appointment with your doctor in 6 weeks. If you had elevated Blood Pressure or 4th degree laceration you will need to be seen in 2 weeks. Primary Care Physician: Care Physician,No Primary [Primary Care Provider] - Test Results: Test results from this visit will be discussed in further detail at your follow- up appointment, if applicable.
[2020-01-01 09:37] VITALS: BP 113/66; PULSE 95; RESP 16; TEMP 36.7
[2020-01-01] MEDS: Ferrous Sulfate 325 MG Tablet PO (12:02)
[2020-01-01] MEDS: Acetaminophen 500 MG Tablet 1000 MG PO (12:07)
[2020-01-01 13:00] VITALS: BP 116/65; PULSE 95; RESP 16; TEMP 36.8
== END 2020-01-01 13:40 | disposition home or self-care (01) | DRG 560 ==
LOC: OBT 01:38 → WP 01:38
PROVIDERS: Admitting Provider Advanced Practice Midwife; Referring Provider Advanced Practice Midwife; Visit Provider Advanced Practice Midwife
DX: O48.0 Post-term pregnancy (principal); Z3A.40 40 weeks gestation of pregnancy; O99.02 Anemia complicating childbirth; D64.9 Anemia, unspecified; Z37.0 Single live birth
CPT/HCPCS: 59025; 59050; 80307; 85025; 86850; 86900; 86901; 99218; J7120; A4216; G0378

== ENCOUNTER 2020-03-03 19:14 | Emergency (ER) | payer MEDICAID, SELFPAY ==
[2019-12-30 01:48] VITALS: BMI 25.7
[2020-03-03 19:15] VITALS: BP 111/53; PULSE 90; RESP 20; TEMP 36.8; O2SAT 100; BMI 22.8
[2020-03-03 19:32] LABS: Mucous, Urine 0 SEEN /hpf (<or=2+); Red Blood Cells-Urine 0 SEEN /hpf (0-5)
[2020-03-03 19:40] LABS: Glucose, Dipstick Normal (Normal); Ketone-Dipstick 15 mg/dl (Negative); Leukocyte Esterase-Dipstick 500 /ul (Negative); Nitrite-Dipstick Negative (Negative); Occult Blood-Urine 10 /ul (Negative); Protein-Dipstick 30 mg/dl (Negative); Specific Gravity, Urine 1.015 (1.002-1.030); Urine Bilirubin Dipstick Negative (Negative); Urine Urobilinogen 8 mg/dl (Normal)
[2020-03-03 19:41] LABS: Color, Urine Yellow (Yellow); Urine Clarity Sl Cloudy (Clear)
[2020-03-03 19:42] LABS: Internal QC Validated? YES +Cl - CLEAR BKGD; Pregnancy, Urine Negative Negative
[2020-03-03 19:46] LABS: Squamous Epithelial Cells - UA 25-50 SEEN /hpf (5-10)
[2020-03-03 19:47] LABS: Bacteria 2+ /hpf (None Seen); White Blood Cells 50-100 SEEN /hpf (0-5)
--- NOTE | 2020-03-03 19:50 | ED.VIS.GEN ---
History of Present Illness Chief Complaint: Flank Pain Informant: Patient Onset: Yesterday Context: Gradual Onset Timing: Intermittent Current Severity: Moderate Maximum Severity: Moderate Narrative: The patient is a 24-year-old female with medical history significant for prior seizure disorder who is not on medication who presents to the emergency department for left flank pain. Patient states that is been going on for the past 24 hours. She states it comes in waves. She denies any nausea or vomiting. She denies any fevers or chills. She states it does hurt to twist or move. She states sometimes with breathing, it is worse. Patient has no history of pulmonary embolus. She denies any recent travel or leg swelling. Prior similar symptoms: No Recent Illness/Hospitalization: No Past Medical History - Allergies and Home Meds Allergies/Adverse Reactions: Allergies No Known Allergies Allergy (Verified 12/30/19 01:49) cats Primary Care Physician: Care Physician,No Primary [Primary Care Provider] - Prior records reviewed: Yes Past Medical History: - - Seizure disorder Surgical History: no surgical history Smoking Status: Never smoker Review of Systems General: Denies: Chills, Fever, Sweats Eyes: Denies: Visual changes - bilaterally, Diplopia ENT: Denies: Rhinorrhea, Sore throat Cardiovascular: Denies: Chest pain, Palpitations Respiratory: Denies: Dyspnea, Cough, Dyspnea on exertion Gastrointestinal: Denies: Abdominal pain, Nausea, Vomiting, Diarrhea, Melena, Hematochezia Genitourinary: Reports: Dysuria. Denies: Hematuria, Frequency Musculoskeletal: Reports: Back pain. Denies: Extremity Pain Skin: Denies: Rash, Wounds Neurological: Denies: Headache, Weakness, Numbness Physical Exam Vital Signs/Narrative: Vital Signs Temp Pulse Resp BP Pulse Ox 03/03/20 19:15 98.2 F 90 20 H 111/53 L 100 Inital Vital Signs reviewed: Yes General: Well nourished, Well developed, No Acute Distress Head: Normocephalic, Atraumatic Eyes: Perrl, EOMI ENT: Moist mucous membranes, No rhinorrhea Neck: Supple, Nontender Cardiovascular: Regular rate, Regular rhythm, No murmurs Respiratory: No distress, CTA bilaterally, Chest nontender Abdomen: Soft, Nontender, Nondistended, Normal bowel sounds Back: Normal Inspection, CVA tenderness Extremities: Nontender, No edema Skin: Normal color, No rash Neurological: Alert, Oriented x3, Cranial nerves II-XII grossly intact, Normal Strength, Normal Sensation Psychological: Normal affect, Normal Mood Diagnostic/Tx/Re-eval Clinical Impression(s) from Imaging Studies Chest X-Ray 03/03/20 19:57 IMPRESSION: Normal. at 2017 Reported and signed by: Patel Dominique MD Electronically Signed: Patel Dominique MD at 20:16 EDT Tel , Service support , Abnormal Lab Results 03/03/20 03/03/20 19:20 19:20 Urine Color Yellow Urine Clarity Sl Cloudy Urine pH 8.0 Ur Specific [place] 1.015 Urine Protein 30 H Urine Glucose (UA) Normal Urine Ketones 15 H Urine Occult Blood 10 H Urine Nitrite Negative Urine Bilirubin Negative Urine Urobilinogen 8 H Ur Leukocyte Esterase 500 H Urine RBC 0 SEEN Urine WBC 50-100 SEEN Ur Squamous Epith Cells 25-50 SEEN Urine Bacteria 2+ Urine Mucus 0 SEEN Urine Test Negative - Medical Decision Making Patient presents with left sided flank and back pain. It is reproducible. She is not had fever or chills. Plain films were obtained of the chest. These were negative for acute process. The patient is PE RC negative. Urine does show evidence of infection. I do suspect that she likely has early Jamala. I am going to treat the patient with Bactrim and anti-inflammatories. She will be discharged home. Impression 1. Left-sided pyelonephritis ED Disposition - Plan for ED Patient: Disposition: Home or Assisted Living Instructions: ED Pyelonephritis Female Adult Prescriptions: Smz/Tmp Ds [Bactrim Ds] 1 tab PO BID #14 tab Prescription Printed Naproxen [Naprosyn] 500 mg PO BID PRN #20 tab Prescription Printed Referrals: Care Physician,No Primary [Primary Care Provider] -
--- NOTE | 2020-03-03 19:57 | RAD_ITS ---
HISTORY: LEFT SIDED CHEST/ABDOMINAL PAIN EXAM: XR Chest 2 Views: COMPARISON: September 14, 2012 FINDINGS: # of images incl. paperwork: 2 Lungs are clear. Heart is not enlarged. No acute osseous pathology perceived. Pulmonary vascularity is distinct. No effusions. RAD/Chest PA and Lateral IMPRESSION: Normal. at 2017 Reported and signed by: Patel Dominique MD Electronically Signed: Patel Dominique MD at 20:16 EDT Tel , Service support ,
[2020-03-03] MEDS: HYDROcodone Bitartrate/Apap 5/325 Tablet PO (20:29)
[2020-03-03] MEDS: Smz/Tmp Ds Tablet 1 TABLET PO (20:29)
[2020-03-03 21:01] VITALS: RESP 16
== END 2020-03-03 21:02 | disposition home or self-care (01) ==
LOC: ED 20:11
PROVIDERS: Emergency Provider Emergency Medicine
DX: N12 Tubulo-interstitial nephritis, not specified as acute or chronic (principal); G40.909 Epilepsy, unspecified, not intractable, without status epilepticus
CPT/HCPCS: 71046; 81001; 81025; 99283

== ENCOUNTER 2021-07-12 06:55 | Inpatient (IN) | payer MEDICAID, SELFPAY ==
[2021-07-12] VITALS (94 sets, daily range): BP systolic 86–120; BP diastolic 44–68; PULSE 61–152; RESP 18; TEMP 36.4–37.1; O2SAT 82–100; BMI 28.7
[2021-07-12] MEDS: Lactated Ringers 1,000 ML 50 ML IV (07:50)
[2021-07-12 08:08] LABS: Absolute Lymphocyte Count 1.49 X10^3/uL (0.83-4.51); Absolute Neutrophil Count 7.2 X10^3/uL (2.0-7.7); Basophil# 0.03 X10^3/uL; Basophil% 0.3 % (0-1); Eosinophil# 0.14 X10^3/uL; Eosinophils% 1.5 % (0-5); Hematocrit 29.8 % (37-47); Hemoglobin 9.3 g/dL (12.0-15.0); Lymphocyte # 1.49 X10^3/ul (0.83-4.51); Lymphocyte % 15.9 % (19-41); Mean Corp Hgb Conc 31.2 g/dL (32-36); Mean Corpuscular Hgb 26.2 pg (27.0-32.0); Mean Corpuscular Volume 83.9 fL (81-99); Mean Platelet Vol. 10.8 fl (6.2-12.0); Monocyte# 0.47 X10^3/uL; NRBC Flagged by Analyzer 0 % (0-5); Neutrophil # 7.22 X10^3/uL (2.7-7.7); Neutrophil % 76.8 % (47-70); Platelet Count 198 K/mm3 (150-450); RBC Distribution Width CV 17.8 % (11.6-14.6); RBC Distribution Width SD 54.9 fl (35.1-43.9); Red Blood Count 3.55 M/mm3 (4.2-5.4); White Blood Count 9.4 K/mm3 (4.4-11.0)
[2021-07-12 08:18] LABS: Amphetamine Urine VISTA NEGATIVE (<1000 ng/mL); Barbiturate Urine VISTA NEGATIVE (< 200 ng/mL); Benzodiazepine Urine VISTA NEGATIVE (< 200 ng/mL); Cocaine Urine VISTA NEGATIVE (< 300 ng/mL); Ecstacy Urine VISTA NEGATIVE (< 500 ng/mL); Methadone Urine VISTA NEGATIVE (< 300 ng/mL); PCP Urine VISTA NEGATIVE (< 25 ng/mL); THC Urine VISTA NEGATIVE (< 50 ng/mL); Vista UDS pH Range 6
[2021-07-12] MEDS: Oxytocin 30 units/NS 500 ml 30 UNITS/500 ML IV.SOLN IV (08:20)
--- NOTE | 2021-07-12 09:44 | NURSING ---
Patient had a covid test done through [facility] office on 07/09/21. The result was negative. I viewed patient's result on MyChart with patient's permission.
[2021-07-12] MEDS: Lactated Ringers 500 ML 999 ML IV ×2 (10:38→11:36)
[2021-07-12] MEDS: fentaNYL-bupivacaine (epidural) 100 ML BAG EPIDURAL (11:30)
[2021-07-12] MEDS: ePHEDrine Sulfate 50 MG/ML Ampul 10 MG IV ×2 (11:39→12:44)
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
[2021-07-12] MEDS: Ondansetron 4 MG/2 ML Vial IV (12:30)
[2021-07-12] MEDS: ePHEDrine Sulfate 50 MG/ML Ampul 10 MG IM (12:50)
[2021-07-12] MEDS: Oxytocin 30 units/NS 500 ml 30 UNITS/500 ML IV.SOLN 334 UNITS IV (16:28)
[2021-07-12] MEDS: Methylergonovine 0.2 MG/ML Ampul IM (16:34)
--- NOTE | 2021-07-12 16:40 | EX.PCM.OBRPT ---
Assessment & Plan (1) (normal spontaneous vaginal delivery): (2) Uterine atony: Vaginal Delivery Maternal Presentation Maternal Presentation: Elective Induction Type of Induction: Pitocin Operative Information Date of Procedure: 07/12/21 Pre-Operative Diagnosis: elective induction of labor Post-Operative Diagnosis: , Uterine atony Surgery / Procedure Performed: Spontaneous Vaginal Delivery Type of Anesthesia: Epidural Estimated Blood Loss: 600 ml Time of Delivery: 16:25 Findings Description of Procedure: Progressed to complete with urge to push. Epidural for pain management. of viable female infant over intact perineum, APGARS with weight pending. Infant head delivered with body forthing coming CANx1, delivered through. Infant placed on maternal abdomen, strong cry with stimulation, mouth and nares suctioned for secretions. Pitocin started for active 3rd stage management. Placenta delivered intact via shanda, intact, 3vessel cord. Perineum inspected and intact. Fundus firm, vaginal sweep completed, hemostasis achived. After cleaning area, uterine atony and increased bleeding. Methergine x1 IM and bimanual compression of uterus. Fundus firm and hemostasis, EBL 600ml. Sponge and instrument count completed. Mom and baby stable, family bonding well. notified of delivery. Radha Youngblood, S 3 present for delivery. Presentation: Vertex and ANSON Amniotic Membrane Rupture Type: Artificial Amniotic Fluid Description: Clear Placental Delivery Description: Expressed Placenta Disposition: [facility] Cord Vessel Description: 3 Vessels Cord Entanglement: Around neck x 1, loose Nuchal Cord Compression: Without compression Infant A Gender: Female (1 minute): 8 (5 minute): 9 Delayed Cord Clamping: Yes Post Vaginal Delivery Medications Given After Delivery: IV Pitocin and IM Methergin Episiotomy Description: None Laceration: None Complication Complications: None
[2021-07-12] MEDS: Ibuprofen 600 MG Tablet PO (21:36)
[2021-07-13 04:25] VITALS: BP 103/46; PULSE 74; RESP 16; TEMP 36.7
[2021-07-13 04:39] LABS: Hemoglobin 8.4 g/dL (12.0-15.0); Mean Corp Hgb Conc 31.1 g/dL (32-36); Mean Corpuscular Hgb 26.4 pg (27.0-32.0); Mean Corpuscular Volume 84.9 fL (81-99); Mean Platelet Vol. 11.1 fl (6.2-12.0); Platelet Count 175 K/mm3 (150-450); RBC Distribution Width CV 17.8 % (11.6-14.6); RBC Distribution Width SD 55.6 fl (35.1-43.9); Red Blood Count 3.18 M/mm3 (4.2-5.4); White Blood Count 9.7 K/mm3 (4.4-11.0)
[2021-07-13 07:50] VITALS: BP 101/52; PULSE 67; RESP 16; TEMP 36.9
--- NOTE | 2021-07-13 08:11 | NURSING ---
pt with congested cough. denies any other symptoms. cough started on 07/11/21
[2021-07-13] MEDS: Ibuprofen 600 MG Tablet PO ×2 (08:18→20:27)
--- NOTE | 2021-07-13 08:20 | PN.OBGYN_ITS ---
Subjective Subjective Patient seen at bedside. Just returned from bathroom and voiding. Had dizzy spells last night. Denies any headache, dizziness, SOB or CP. Breast and bottle feeding. Lochia decreased. Denies any pain. Desires discharge home tomorrow due to paternity testing. Patient tearful, stating she is afraid they are going to t madonna her baby. Encouragement given. SS continuous washer operator to see her this morning. Objective Data Objective Data Vital Signs: Vital Signs Temp Pulse Resp BP Pulse Ox 98.5 F 67 16 101/52 L 100 07/13/21 07:50 07/13/21 07:50 07/13/21 07:50 07/13/21 07:50 07/12/21 17:46 Oxygen Delivery Method Room Air Weight: 157 lb 2 oz Body Mass Index (BMI) 28.7 Intake & Output: Intake and Output for Last 24 Hours 07/11/21 07/12/21 07/13/21 23:59 23:59 23:59 Intake Total 2695.20 / 2695.20 Output Total 2200 / 2200 Balance 495.20 / 495.20 Lab / Micro Data Result Diagrams: 07/13/21 04:32 Labs: Laboratory Results - last 24 hr 07/12/21 07:50: Blood Type O POSITIVE, Antibody Screen NEGATIVE 07/13/21 04:32: WBC 9.7, RBC 3.18 L, Hgb 8.4 L, Hct 27.0 L, MCV 84.9, MCH 26.4 L , MCHC 31.1 L, RDW Std Deviation 55.6 H, RDW Coeff of Candy 17.8 H, Plt Count 175, MPV 11.1 ROS Eyes Eyes: Denies blurry vision, change in vision or spots in vision ENT HEENT: Denies dizziness or headache(s) Cardiovascular Cardiovascular: Denies abdominal pain, chest pain or dyspnea Respiratory/Chest Respiratory/Chest: Denies cough, dyspnea, shortness of breath at rest or shortness of breath with exertion Gastrointestinal Gastrointestinal: Denies abdominal pain, diarrhea or vomiting Genitourinary Genitourinary: Denies change in urinary stream, difficulty urinating or dysuria Musculoskeletal Musculoskeletal: Reports none Integumentary Integumentary: Denies rash Neurologic Neurologic: Denies dizziness, headache(s), memory loss or weakness Physical Exam Const alert and no apparent distress General Appearance: cooperative and comfortable Exam Limitations: no limitations HEENT normocephalic Eyes General Eye: normal appearance of both eyes Neck full ROM General: normal visual inspection Chest Chest: symmetrical chest wall rise Resp normal respiratory effort and normal air movement Effort and Inspection: symmetric chest movement Auscultation: clear to auscultation bilaterally Cardio regular rate and regular rhythm GI normal to inspection, nondistended, normoactive bowel sounds Back/Spine normal ROM Extremity full ROM and no calf tenderness General Extremity: normal exam except as noted Skin no rashes or lesions noted Neuro CN's II-XII intact bilaterally Psych mental status grossly normal Assessment & Plan (1) Uterine atony: (2) (normal spontaneous vaginal delivery): (3) depression: (4) Anemia: QUALIFIERS: Anemia type: unspecified type Qualified Code(s): D64.9 - Anemia, unspecified (5) Support system deficit: (6) Custody issue: PLAN: PPD 1 - intact HGB 8.4 down from 9.3 IVFE x 1 dose today due to being symptomatic last night SSC today- Patient hx. of custody issues Requesting to restart Zoloft- Start Zoloft 25 mg PO HS - discussed with continuous washer operator-patient will have follow up MH appointments Anticipate discharge home tomorrow
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
[2021-07-13] MEDS: Sertraline 50 MG Tablet 25 MG PO (09:48)
[2021-07-13] MEDS: Prenatal Vits Tablet 1 TABLET PO (09:48)
--- NOTE | 2021-07-13 12:30 | CASEMGMT ---
Social Work Labor and Delivery Called [facility] and spoke with Shani Herrera in the intake department ([phone], ext [phone]). Referral due to concern for substance exposed infant in utero based on 2nd trimester drug screen at 21 weeks, past children services involvement with last involvement ending just in May 2021, maternal mental health history, and also FOB history. Reported positives as well regarding endorsed community support services involvement and MOB reported agreement to stay in mental health counseling at this time. Asked Shani to have someone call this entry writer with update on status of referral, as MOB is worried and would like some time to know and process things. Will continue to follow and assist. -ALEJA Ba, GAMING WORKER
[2021-07-13 13:07] VITALS: BP 105/50; PULSE 78; RESP 16; TEMP 36.8
[2021-07-13 20:30] VITALS: BP 110/62; PULSE 70; RESP 17; TEMP 37
[2021-07-13] MEDS: Acetaminophen 500 MG Tablet 1000 MG PO (22:43)
[2021-07-14 02:32] VITALS: BP 104/42; PULSE 80; RESP 16; TEMP 36.9
--- NOTE | 2021-07-14 06:39 | PN.OBGYN_ITS ---
Subjective Subjective Patient seen at bedside. Denies any headache, dizziness, SOB, or CP. Lochia decreased. Ambulating and voiding without difficulty. Desires discharge home today. Social work involved with patient and plan of care for discharge. Objective Data Objective Data Vital Signs: Vital Signs Temp Pulse Resp BP Pulse Ox 98.4 F 80 16 104/42 L 100 07/14/21 02:32 07/14/21 02:32 07/14/21 02:32 07/14/21 02:32 07/12/21 17:46 Oxygen Delivery Method Room Air Weight: 157 lb 2 oz Body Mass Index (BMI) 28.7 Intake & Output: Intake and Output for Last 24 Hours 07/12/21 07/13/21 07/14/21 23:59 23:59 23:59 Intake Total 2695.20 / 2695.20 110 / 110 Output Total 2200 / 2200 Balance 495.20 / 495.20 110 / 110 Lab / Micro Data Result Diagrams: 07/13/21 04:32 Labs: Laboratory Results - last 24 hr 07/13/21 15:10: COVID-19 (RHONDA) Not Detected ROS Eyes Eyes: Denies blurry vision, change in vision or spots in vision ENT HEENT: Denies dizziness or headache(s) Cardiovascular Cardiovascular: Denies abdominal pain, chest pain or dyspnea Respiratory/Chest Respiratory/Chest: Denies cough, dyspnea, shortness of breath at rest or shortne ss of breath with exertion Gastrointestinal Gastrointestinal: Denies abdominal pain, diarrhea or vomiting Genitourinary Genitourinary: Denies change in urinary stream, difficulty urinating or dysuria Musculoskeletal Musculoskeletal: Reports none Integumentary Integumentary: Denies rash Neurologic Neurologic: Denies dizziness, headache(s), memory loss or weakness Physical Exam Const alert and no apparent distress General Appearance: cooperative and comfortable Exam Limitations: no limitations HEENT normocephalic Eyes General Eye: normal appearance of both eyes Neck full ROM General: normal visual inspection Chest Chest: symmetrical chest wall rise Resp normal respiratory effort and normal air movement Effort and Inspection: symmetric chest movement Auscultation: clear to auscultation bilaterally Cardio regular rate and regular rhythm GI normal to inspection, nondistended, normoactive bowel sounds Back/Spine normal ROM Extremity full ROM and no calf tenderness General Extremity: normal exam except as noted Skin no rashes or lesions noted Neuro CN's II-XII intact bilaterally Psych mental status grossly normal Assessment & Plan (1) Custody issue: (2) Support system deficit: (3) (normal spontaneous vaginal delivery): (4) History of depression: PLAN: PPD 2 - Intact Routine care Breast feeding support electronics commodity manager to see patient prior to discharge Zoloft 25 mg PO HS- Rx sent-patient has follow up at counseling center Depo Provera 150 mg IM x1 prior to discharge- patient requesting until can have Mirena placed in office Discharge home with follow up in office in 2 weeks
--- NOTE | 2021-07-14 06:43 | NURSING ---
All charting by SN Tino reviewed by this RN.
--- NOTE | 2021-07-14 06:48 | PCM.DC ---
Discharge Instructions Diet Discharge Diet: No restrictions Activity May resume sexual activity in: 6-8 weeks Weight Bearing Status: Weight bearing as tolerated Dressing / Incision Call your doctor if you observe: Fever of 101 or Higher, Inability to urinate, Using more than 1 pad per hour, Shortness of breath, Chest pain, Calf discomfort and Uncontrolled pain Follow Up Care When: 2 weeks virtual visit/ 6 weeks in office Test Results: Test results from this visit will be discussed in further detail at your follow-up appointment, if applicable. Discharge Plan Admission Admit Date/Time: 07/12/21 06:55 Primary Reason for Your Visit: Labor and Delivery Attending Provider: Hilda Blackburn Primary Care Provider: Care Physician,Emmanuelle Primary Discharge Orders/Prescriptions Prescriptions: New sertraline 50 mg Tablet 25 mg PO DAILY@2000 Qty: 30 RF: 0 Prenatabs FA 29-1 mg Tablet 1 tab PO DAILY@1200 Qty: 0 RF: 0 Continued ferrous sulfate 325 MG tablet 325 mg PO TIDCM RF: 0 Discontinued vit,[id number] 1 EACH tablet 1 ea PO DAILY RF: 0 Referrals / Follow Up: Care Physician,No Primary [Primary Care Provider] - Disposition Disposition (needs filled in before D/C Order can be placed): Home, Self Care
[2021-07-14 08:55] VITALS: BP 107/56; PULSE 81; RESP 16; TEMP 36.8; O2SAT 98
[2021-07-14] MEDS: Prenatal Vits Tablet 1 TABLET PO (12:17)
[2021-07-14] MEDS: MedroxyPROGESTERone 150 MG/ML Syringe IM (12:17)
[2021-07-14 13:59] VITALS: BP 113/52; PULSE 84; RESP 16; TEMP 37.2
--- NOTE | 2021-07-14 15:52 | CASEMGMT ---
Social Work Labor and Delivery. Chart reviewed and spoke with nursing. No voiced concerns regarding parent/child interactions or bonding. Called [facility] and spoke with intake screener Dayna March (extension [phone]) to check on status of referral. Referral not being opened for investigation at this time. If meconium results come back positive then referral would be re-evaluated. Did let Dayna know that TITO does have history of depression. Called [facility] to obtain a mental health appointment. TITO is not showing as an active client in the system under current last name of Luz or even last name of John. MOB would have to have an intake appointment. Met with MOB in room and updated to CSB response at this time. Let MOB know that should meconium come back positive, which is a possibility then CSB would likely make contact. MOB expressed happiness on about lack of children services involvement right now and understanding about possibility of future involvement. Informed MOB that she does not appear to be a client at [facility]. Suggested that maybe MOB is going to [facility], as this is close in proximity to [facility]. MOB reports to go to [facility] and that sees a doctor by the name of Sotero for medications, also at [facility]. MOB reports to have names and numbers at home, so will call and make own appointments. MOB declined this newswriter calling [facility] to check on possible active status at that agency. Plan: MOB and baby to discharge home. Provided MOB with [facility] resources list and packet on mood and anxiety disorders. Will monitor for meconium drug screen results. No other services requested at this time. -GIOVANNY Ba, SEARCH ENGINE MARKETING STRATEGIST
== END 2021-07-14 14:40 | disposition home or self-care (01) | DRG 566 ==
PROVIDERS: Obstetrics & Gynecology; Admitting Provider Advanced Practice Midwife; Visit Provider Advanced Practice Midwife
DX: O62.2 Other uterine inertia (principal); D64.9 Anemia, unspecified; Z37.0 Single live birth; O99.344 Other mental disorders complicating childbirth; F32.A Depression, unspecified; Z65.3 Problems related to other legal circumstances; O99.02 Anemia complicating childbirth; O69.81X0 Labor and delivery complicated by cord around neck, without compression, not applicable or unspecified; Z87.59 Personal history of other complications of pregnancy, childbirth and the puerperium; Z3A.39 39 weeks gestation of pregnancy
CPT/HCPCS: 59025; 59050; 80307; 85025; 85027; 86850; 86900; 86901; 87635; 99218; J1756; J7120; G0378; J2405; U0003; U0005

== ENCOUNTER 2022-04-13 21:27 | Emergency (ER) | payer MEDICAID, SELFPAY ==
[2022-04-13 21:28] VITALS: BP 124/66; PULSE 94; RESP 17; TEMP 36.7; O2SAT 97; BMI 26.5
--- NOTE | 2022-04-13 22:13 | CT_ITS ---
EXAM: CT HEAD WITHOUT INTRAVENOUS CONTRAST CLINICAL INDICATION: seizure, headache TECHNIQUE: Multiple axial images were obtained of the head without intravenous contrast. CTDIvol = ( 44.99 ) mGy, DLP = ( 796.11 ) mGycm This CT exam was performed using one or more of the following dose reduction techniques: automated exposure control, adjustment of the mA and/or kV according to patient size, and/or use of iterative reconstruction technique. This report was created using [employer] report generation technology. COMPARISON: September 19, 2014 CT. FINDINGS: BRAIN AND EXTRA-AXIAL SPACES: Unremarkable. No intra- or extra-axial hemorrhage. No evidence of acute infarct. No intracranial mass or mass effect. There is preservation of the samuels/white matter interface. Posterior fossa structures are unremarkable. Ventricles are appropriate for age. No hydrocephalus. Basal cisterns are patent. BONES/JOINTS: Unremarkable. No discrete lytic or blastic abnormalities. SINUSES: Unremarkable as visualized. Clear. MASTOID AIR CELLS: Unremarkable. Clear. ORBITS: Visualized globes, extraocular muscles, optic nerves and retrobulbar fat appear unremarkable. CT/Brain/Head without Contrast IMPRESSION: Negative head/brain CT without intravenous contrast. Electronically Signed: Joss Banks MD at 23:11 EDT ,
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
[2022-04-13] MEDS: levETIRAcetam 1,000 MG Tablet 1000 MG PO (22:53)
[2022-04-13] MEDS: Acetaminophen 500 MG Tablet 1000 MG PO (22:53)
== END 2022-04-13 23:34 | disposition home or self-care (01) ==
PROVIDERS: Emergency Provider Emergency Medicine; Visit Provider Emergency Medicine
DX: R56.9 Unspecified convulsions (principal); R53.83 Other fatigue; R05.9 Cough, unspecified; R51.9 Headache, unspecified; Z87.891 Personal history of nicotine dependence; Z28.310 Unvaccinated for COVID-19
CPT/HCPCS: 70450; 99285

== ENCOUNTER 2022-06-15 17:58 | Emergency (ER) | payer MEDICAID, SELFPAY ==
[2022-06-15 17:59] VITALS: BP 124/76; PULSE 118; RESP 16; TEMP 35.6; O2SAT 98; BMI 25.7
[2022-06-15] MEDS: Morphine 4 MG/ML Syringe 2 MG IV (20:02)
[2022-06-15] MEDS: Ondansetron 4 MG/2 ML Vial IV (20:03)
[2022-06-15] MEDS: cycloBENZAPRine HCl 10 MG Tablet PO (20:07)
[2022-06-15] MEDS: Ketorolac 15 MG/ML Vial IV (20:08)
--- NOTE | 2022-06-15 20:10 | RAD_ITS ---
INDICATION: fall EXAMINATION/TECHNIQUE: X-RAY - XR Spine Lumbar 2 or 3 Views COMPARISON: None. FINDINGS: VERTEBRAE: Preserved vertebral body height. No fracture. Grade 1 retrolisthesis at L5-S1. Mild levoscoliosis deformity possibly due to muscle spasm Preservation of the normal lumbar lordosis. No significant facet arthropathy. DISCS: Disc spaces are maintained. INCLUDED ABDOMEN: Included bowel gas pattern is non-obstructive. IUD noted within the mid upper pelvis to the midline likely within the uterus. RAD/Lumbar Spine 2 or 3 Views IMPRESSION: Mild levoscoliosis or splinting possibly secondary to muscle spasm. No evidence of lumbar spinal fracture or spondylolisthesis. Electronically Signed: Merrick Garcia MD at 20:44 EST ,
--- NOTE | 2022-06-15 20:10 | RAD_ITS ---
INDICATION: fall EXAMINATION/TECHNIQUE: X-RAY - XR Pelvis 1 or 2 Views COMPARISON: None. FINDINGS: PELVIC BONES: No displaced fracture, destructive or sclerotic lesions. Note that overlapping bowel shadows may however obscure fine detail. Sacroiliac joints are unremarkable. No widening of the pubic symphysis. HIPS: The articular structures are unremarkable. No displaced fracture seen in this frontal view. SOFT TISSUES: No soft tissue swelling or gas. IUD noted within the mid to upper pelvis in the midline RAD/Pelvis 1 or 2 Views IMPRESSION: No evidence of displaced pelvic or hip fracture. Electronically Signed: Merrick Garcia MD at 20:49 EST ,
[2022-06-15 20:28] VITALS: BP 121/63; PULSE 102; RESP 26; O2SAT 99
[2022-06-15 20:36] LABS: Internal QC Validated? YES +Cl - CLEAR BKGD; Pregnancy, Serum, hCG Quali. NEGATIVE Negative
--- NOTE | 2022-06-15 20:38 | ED.RN ---
Radiology alerted this RN of increased drowsiness leading to radiologist using sternal rub to wake pt. Pt back in ER and placed on monitor. vitals include 115/62, HR 91, O2 97% on RA RR 15. Dr. Ramos notified of event, closer monitoring of this pt.
--- NOTE | 2022-06-15 20:52 | CT_ITS ---
INDICATION: right flank pain EXAMINATION: CT ABDOMEN AND PELVIS WITHOUT CONTRAST - CT Abdomen And Pelvis W/O Contrast Injection TECHNIQUE: Helically acquired images were obtained of the abdomen and pelvis without oral or IV contrast. A radiation dose optimization technique was used for this scan. IV Contrast dosage and agent: None. Oral contrast: None. COMPARISON: None. FINDINGS: LOWER CHEST: Lung bases are clear. No cardiomegaly or pericardial effusion. LIVER: There is elongation of the right lobe of the liver which may be consistent with normal variant. Attenuation is homogeneous.. No focal mass. GALLBLADDER AND BILIARY TREE: No calcified gallstones. No gallbladder distension or wall edema. No intra- or extrahepatic biliary ductal dilation. PANCREAS: No focal cystic or solid mass. SPLEEN: Normal size without focal cystic or solid mass. ADRENAL GLANDS: No nodules. KIDNEYS AND URETERS: No evidence for renal obstruction or mass.. PERITONEUM: No ascites or free air. No other fluid collection. BOWEL: No evidence of acute appendicitis. No stomach or bowel distension. No focal inflammatory change. LYMPH NODES: No enlarged mesenteric or retroperitoneal lymph nodes. VESSELS: Aorta is non-dilated. URINARY BLADDER: Unremarkable. REPRODUCTIVE ORGANS: Small left ovarian cyst is noted.. IUD noted within the uterine fundus ABDOMINAL WALL: No discrete abdominal or pelvic wall hernia. BONES: No lytic or blastic abnormality. CT/Abdomen/Pelvis without Cont IMPRESSION: No evidence for small bowel obstruction or other acute abnormality. Small left ovarian cyst likely physiologic. Electronically Signed: Merrick Garcia MD at 21:33 EST ,
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
[2022-06-15 22:46] VITALS: BP 106/59; PULSE 81; RESP 21; O2SAT 97
== END 2022-06-15 22:52 | disposition home or self-care (01) ==
PROVIDERS: Emergency Provider Emergency Medicine; Visit Provider Emergency Medicine
DX: S20.229A Contusion of unspecified back wall of thorax, initial encounter (principal); M62.830 Muscle spasm of back; M79.652 Pain in left thigh; F17.290 Nicotine dependence, other tobacco product, uncomplicated; W19.XXXA Unspecified fall, initial encounter
CPT/HCPCS: 72100; 72170; 74176; 84703; 96374; 96375; 99283; A4216; J2405

== ENCOUNTER 2023-05-25 10:15 | Outpatient (CLI) | payer MEDICAID, SELFPAY ==
[2023-05-25] VITALS (12 sets, daily range): BP systolic 82–107; BP diastolic 49–57; PULSE 91–109; TEMP 36.5–37.8; O2SAT 97–100; BMI 24.1
[2023-05-25 11:16] LABS: Mucous, Urine 0 SEEN /hpf (<or=2+); Red Blood Cells-Urine 0 SEEN /hpf (0-5)
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
[2023-05-25 11:21] LABS: Color, Urine Yellow (Yellow); Glucose, Dipstick Normal (Normal); Ketone-Dipstick Negative (Negative); Leukocyte Esterase-Dipstick 100 /ul (Negative); Nitrite-Dipstick Positive (Negative); Occult Blood-Urine 10 /ul (Negative); Protein-Dipstick 15 mg/dl (Negative); Urine Bilirubin Dipstick Negative (Negative); Urine Clarity Sl. Cloudy (Clear); Urine Urobilinogen 1 mg/dl (Normal)
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
[2023-05-25 11:38] LABS: Bacteria 3+ /hpf (None Seen); Squamous Epithelial Cells - UA 5-10 SEEN /hpf (5-10); White Blood Cells 5-10 SEEN /hpf (0-5)
[2023-05-25] MEDS: Lactated Ringers 1,000 ML 500 ML IV (12:20)
[2023-05-25] MEDS: Acetaminophen 500 MG Tablet 1000 MG PO (12:26)
[2023-05-25 12:32] LABS: Absolute Lymphocyte Count 0.72 X10^3/uL (0.83-4.51); Absolute Neutrophil Count 9.4 X10^3/uL (2.0-7.7); Basophil# 0.03 X10^3/uL; Basophil% 0.3 % (0-1); Eosinophil# 0.02 X10^3/uL; Eosinophils% 0.2 % (0-5); Hematocrit 32.1 % (37-47); Hemoglobin 10.6 g/dL (12.0-15.0); Lymphocyte # 0.72 X10^3/ul (0.83-4.51); Lymphocyte % 6.7 % (19-41); Mean Corpuscular Hgb 29.9 pg (27.0-32.0); Mean Corpuscular Volume 90.7 fL (81-99); Mean Platelet Vol. 10.8 fl (6.2-12.0); Monocyte# 0.62 X10^3/uL; Monocyte% 5.7 % (0-10); NRBC Flagged by Analyzer 0 % (0-5); Neutrophil # 9.35 X10^3/uL (2.7-7.7); Neutrophil % 86.5 % (47-70); Platelet Count 185 K/mm3 (150-450); RBC Distribution Width CV 13.7 % (11.6-14.6); RBC Distribution Width SD 45.3 fl (35.1-43.9); Red Blood Count 3.54 M/mm3 (4.2-5.4); White Blood Count 10.8 K/mm3 (4.4-11.0)
[2023-05-25 13:08] LABS: Amylase 53 U/L (25-115); Anion Gap 7 (5-15); BUN 4 mg/dL (7-18); BUN/Creat Ratio 9.5 RATIO (10-20); Calcium,Total 8.6 mg/dL (8.5-10.1); Chloride 106 mmol/L (98-107); Creatinine, Serum 0.42 mg/dL (0.55-1.02); EST Glomerular Filtration Rate 189 mL/min (>60); Est Glom Filt Rate - Afr Amer 228 mL/min (>60); Estimated Creatinine Clearance 163.49 ml/min; Glucose 96 mg/dL (74-106); Lipase 18 U/L (13-75); Potassium 3.2 mmol/L (3.5-5.1); Sodium Level 133 mmol/L (136-145)
[2023-05-25 13:40] LABS: AST(SGOT) 12 U/L (15-37); Alanine Aminotransfer ALT/SGPT 11 U/L (13-56)
[2023-05-25 13:49] LABS: Alkaline Phosphatase 101 U/L (45-117)
[2023-05-25] MEDS: Cefazolin 2 GM in 0.9% Normal Saline (100mL Bag) 100 ML IV (13:51)
[2023-05-25] MEDS: Lactated Ringers 1,000 ML 200 ML IV (14:17)
== END 2023-05-25 15:15 | disposition home or self-care (01) ==
LOC: WPOUT 10:21 → WP 10:22
PROVIDERS: Obstetrics & Gynecology; Referring Provider Advanced Practice Midwife; Visit Provider Advanced Practice Midwife
DX: O23.42 Unspecified infection of urinary tract in pregnancy, second trimester (principal); G40.909 Epilepsy, unspecified, not intractable, without status epilepticus; Z3A.22 22 weeks gestation of pregnancy; O99.342 Other mental disorders complicating pregnancy, second trimester; F32.A Depression, unspecified; O99.352 Diseases of the nervous system complicating pregnancy, second trimester; Z79.899 Other long term (current) drug therapy; O99.332 Smoking (tobacco) complicating pregnancy, second trimester; F17.290 Nicotine dependence, other tobacco product, uncomplicated
CPT/HCPCS: 80048; 81001; 82150; 83690; 84075; 84450; 84460; 85025; 87086; 87088; 87186; 96372; 99221; J7120; G0378

== ENCOUNTER 2023-09-22 06:50 | Inpatient (IN) | payer MEDICAID, SELFPAY ==
[2023-05-25 10:36] VITALS: RESP 18
[2023-05-25 12:26] VITALS: RESP 18
[2023-05-25 13:38] VITALS: RESP 18
[2023-05-25 14:44] VITALS: RESP 18
[2023-09-22] VITALS (61 sets, daily range): BP systolic 93–192; BP diastolic 53–132; PULSE 64–187; RESP 15–24; TEMP 36.1–37.6; O2SAT 88–100; BMI 28.0
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
[2023-09-22] MEDS: Lactated Ringers 1,000 ML 50 ML IV (08:30)
[2023-09-22 08:41] LABS: Absolute Lymphocyte Count 1.73 X10^3/uL (0.83-4.51); Absolute Neutrophil Count 8.3 X10^3/uL (2.0-7.7); Basophil# 0.06 X10^3/uL; Basophil% 0.5 % (0-1); Eosinophil# 0.23 X10^3/uL; Eosinophils% 2.1 % (0-5); Hematocrit 32.9 % (37-47); Hemoglobin 10.5 g/dL (12.0-15.0); Lymphocyte # 1.73 X10^3/ul (0.83-4.51); Lymphocyte % 15.5 % (19-41); Mean Corp Hgb Conc 31.9 g/dL (32-36); Mean Corpuscular Hgb 28.2 pg (27.0-32.0); Mean Corpuscular Volume 88.2 fL (81-99); Monocyte# 0.73 X10^3/uL; Monocyte% 6.6 % (0-10); NRBC Flagged by Analyzer 0 % (0-5); Neutrophil # 8.32 X10^3/uL (2.7-7.7); Neutrophil % 74.8 % (47-70); Platelet Count 241 K/mm3 (150-450); RBC Distribution Width CV 19.4 % (11.6-14.6); RBC Distribution Width SD 61.3 fl (35.1-43.9); Red Blood Count 3.73 M/mm3 (4.2-5.4); White Blood Count 11.1 K/mm3 (4.4-11.0)
[2023-09-22 08:59] LABS: Amphetamine Urine VISTA NEGATIVE (<1000 ng/mL); Barbiturate Urine VISTA NEGATIVE (< 200 ng/mL); Benzodiazepine Urine VISTA NEGATIVE (< 200 ng/mL); Cocaine Urine VISTA NEGATIVE (< 300 ng/mL); Ecstacy Urine VISTA NEGATIVE (< 500 ng/mL); Methadone Urine VISTA NEGATIVE (< 300 ng/mL); PCP Urine VISTA NEGATIVE (< 25 ng/mL); THC Urine VISTA NEGATIVE (< 50 ng/mL); Vista UDS pH Range 6
[2023-09-22] MEDS: miSOPROStol 25 MCG TABLET VAGINAL (09:01)
[2023-09-22 09:14] LABS: Syphilis Antibodies Non-reactive
[2023-09-22] MEDS: Lactated Ringers 1,000 ML 999 ML IV (10:20)
[2023-09-22] MEDS: fentaNYL-bupivacaine (epidural) 100 ML BAG EPIDURAL ×2 (10:44→15:10)
[2023-09-22] MEDS: Lactated Ringers 1,000 ML 100 ML IV (10:53)
[2023-09-22] MEDS: 0.9% Normal Saline Single 100 ML IV.SOLN. INTRA-UTER (11:12)
--- NOTE | 2023-09-22 13:15 | PN.OBGYN_ITS ---
Subjective Subjective Patient seen at bedside. Comfortable with epidural. Denies any pain. Objective Data Objective Data Vital Signs: Vital Signs Temp Pulse Resp BP Pulse Ox 98.0 F 78 18 105/56 L 98 09/22/23 10:50 09/22/23 13:03 09/22/23 11:18 09/22/23 13:03 09/22/23 11:17 Weight: 158 lb Body Mass Index (BMI) 28.0 Intake & Output: Intake and Output for Last 24 Hours 09/20/23 09/21/23 09/22/23 23:59 23:59 23:59 Intake Total 1257.12 / 1257.12 Balance 1257.12 / 1257.12 Lab / Micro Data 09/22/23 08:20 Labs: Laboratory Results - last 24 hr 09/22/23 08:20: WBC 11.1 H, RBC 3.73 L, Hgb 10.5 L, Hct 32.9 L, MCV 88.2, MCH 28.2, MCHC 31.9 L, RDW Std Deviation 61.3 H, RDW Coeff of Candy 19.4 H, Plt Count 241, MPV 11.0, Immature Gran % (Auto) 0.500, Neut % (Auto) 74.8 H, Lymph % (Auto) 15.5 L, [place] % (Auto) 6.6, Eos % (Auto) 2.1, Baso % (Auto) 0.5, Absolute Neuts (auto) 8.3 H, Absolute Lymphs (auto) 1.73, Nucleated RBC % 0, Urine Opiates Screen NEGATIVE, Urine Methadone Screen NEGATIVE, Ur Barbiturates Screen NEGATIVE, Ur Phencyclidine Scrn NEGATIVE, Ur Amphetamines Screen NEGATIVE, MDMA (Ecstasy) Screen NEGATIVE, U Benzodiazepines Scrn NEGATIVE, Urine Cocaine Screen NEGATIVE, U Cannabinoids Screen NEGATIVE, Ur Drug Screen Comment , Syphilis Total Ab Non-reactive, Blood Type O POSITIVE, Antibody Screen NEGATIVE Assessment & Plan (1) 39 weeks gestation of : (2) Encounter for elective induction of labor: (3) Anemia affecting , antepartum: (4) Custody issue: (5) Depression: (6) History of marijuana use: (7) Grand multipara: (8) Seizure: COMMENT: 11/2022 (9) Support system deficit: PLAN: Plan CE /-2 AROM for large amount of clear fluid IUPC and FSE placed without difficulty Continue Pitocin IV Anticipate Dr. Hardwick on unit and updated
[2023-09-22] MEDS: LACTATED RINGERS 500 ML 999 ML IV (13:40)
[2023-09-22] MEDS: Oxytocin 15 Units/NS 250ml 15 UNITS/250 ML IV.SOLN 2 UNITS IV (14:08)
[2023-09-22] MEDS: Amnioinfusion- 0.9% NS 1,000 ML IV.SOLN. 1000 ML INTRA-UTER (14:30)
[2023-09-22] MEDS: Lactated Ringers 1,000 ML 200 ML IV (16:02)
--- NOTE | 2023-09-22 17:46 | PCM.PN.CNM ---
Subjective Subjective Patient remains comfortable with epidural. Feeling pressure off and on. Objective Data Objective Data Vital Signs: Vital Signs Temp Pulse Resp BP Pulse Ox 97.0 F L 64 15 105/54 L 98 09/22/23 15:14 09/22/23 15:14 09/22/23 15:14 09/22/23 15:14 09/22/23 11:17 Weight: 158 lb Body Mass Index (BMI) 28.0 Intake & Output: Intake and Output for Last 24 Hours 09/20/23 09/21/23 09/22/23 23:59 23:59 23:59 Intake Total 2287.35 / 2287.35 Balance 2287.35 / 2287.35 Lab / Micro Data 09/22/23 08:20 Labs: Laboratory Results - last 24 hr 09/22/23 08:20: WBC 11.1 H, RBC 3.73 L, Hgb 10.5 L, Hct 32.9 L, MCV 88.2, MCH 28.2, MCHC 31.9 L, RDW Std Deviation 61.3 H, RDW Coeff of Candy 19.4 H, Plt Count 241, MPV 11.0, Immature Gran % (Auto) 0.500, Neut % (Auto) 74.8 H, Lymph % (Auto) 15.5 L, [place] % (Auto) 6.6, Eos % (Auto) 2.1, Baso % (Auto) 0.5, Absolute Neuts (auto) 8.3 H, Absolute Lymphs (auto) 1.73, Nucleated RBC % 0, Urine Opiates Screen NEGATIVE, Urine Methadone Screen NEGATIVE, Ur Barbiturates Screen NEGATIVE, Ur Phencyclidine Scrn NEGATIVE, Ur Amphetamines Screen NEGATIVE, MDMA (Ecstasy) Screen NEGATIVE, U Benzodiazepines Scrn NEGATIVE, Urine Cocaine Screen NEGATIVE, U Cannabinoids Screen NEGATIVE, Ur Drug Screen Comment , Syphilis Total Ab Non-reactive, Blood Type O POSITIVE, Antibody Screen NEGATIVE Assessment & Plan (1) Support system deficit: (2) Seizure: COMMENT: 11/2022 (3) History of marijuana use: (4) Grand multipara: (5) Depression: (6) Custody issue: (7) Anemia affecting , antepartum: (8) Encounter for elective induction of labor: (9) 39 weeks gestation of : PLAN: Plan NST Reactive- Cat. 2 tracing at times with variables Continue running Amnio infusion CE /-1 Continue to increase Pitocin IV per policy Anticipate
[2023-09-22] MEDS: Oxytocin 10 UNITS/ML Vial IM (19:12)
[2023-09-22] MEDS: Methylergonovine 0.2 MG/ML Ampul IM (19:16)
[2023-09-22] MEDS: miSOPROStol 200 MCG Tablet 1000 MCG RC (19:18)
[2023-09-22] MEDS: 0.9% Saline Lock 10 ML Syringe IV ×3 (19:19→22:38)
[2023-09-22] MEDS: TRANEXAMIC ACID 1,000 MG in 0.9% Normal Saline (100mL Bag) 100 ML 440 MG IV (19:29)
[2023-09-22] MEDS: Oxytocin 15 Units/NS 250ml 15 UNITS/250 ML IV.SOLN 83 UNITS IV (19:34)
[2023-09-22 19:38] LABS: Absolute Lymphocyte Count 1.62 X10^3/uL (0.83-4.51); Absolute Neutrophil Count 9.6 X10^3/uL (2.0-7.7); Basophil# 0.05 X10^3/uL; Basophil% 0.4 % (0-1); Eosinophil# 0.12 X10^3/uL; Hematocrit 25.2 % (37-47); Hemoglobin 7.9 g/dL (12.0-15.0); Lymphocyte # 1.62 X10^3/ul (0.83-4.51); Lymphocyte % 13.4 % (19-41); Mean Corp Hgb Conc 31.3 g/dL (32-36); Mean Corpuscular Hgb 28.1 pg (27.0-32.0); Mean Corpuscular Volume 89.7 fL (81-99); Monocyte# 0.71 X10^3/uL; Monocyte% 5.9 % (0-10); NRBC Flagged by Analyzer 0 % (0-5); Neutrophil # 9.56 X10^3/uL (2.7-7.7); Neutrophil % 78.8 % (47-70); Platelet Count 201 K/mm3 (150-450); RBC Distribution Width SD 61.1 fl (35.1-43.9); Red Blood Count 2.81 M/mm3 (4.2-5.4); White Blood Count 12.1 K/mm3 (4.4-11.0)
[2023-09-22] MEDS: Acetaminophen 500 MG Tablet PO (19:52)
--- NOTE | 2023-09-22 19:55 | EX.PCM.OBRPT ---
Assessment & Plan (1) (spontaneous vaginal delivery): (2) PPH ( hemorrhage): (3) Anemia due to blood loss: Maternal Data Information BEATRIZ Calculator Estimated Delivery Date Method Current WG Current Estimate 09/28/23 Manual 39w 1d Vaginal Delivery Maternal Presentation Maternal Presentation: Elective Induction Type of Induction: Pitocin and Amniotomy Operative Information Date of Procedure: 09/22/23 Pre-Operative Diagnosis: Term gestation, elective induction of labor Post-Operative Diagnosis: , Live female Surgery / Procedure Performed: Spontaneous Vaginal Delivery Type of Anesthesia: Epidural Drain: Gill to straight drain Estimated Blood Loss: 1000 Time of Delivery: 19:02 Findings Description of Procedure: Provided bedside support to patient. Patient feeling urge to bear down. With minimal maternal effort, head delivered over intact perineum followed immediately by body. Vigorous female placed on maternal abdomen and was attended to by nursing staff. IM Pitocin given for active management of the third stage of labor. 3 vessel cord clamped and cut by FOB and infant placed skin to skin with patient. Placenta delivered spontaneously and intact at 1912. Uterus boggy and not firming with massage. Uterine compression done and fundus started to firm. Vaginal sweep removed several large clots. Nursing continued to massage uterus. Patient continued to pass large amounts of clots and blood. IM Methergine, Cytotec [place], and IV Pitocin and fluid bolus given. Uterus starting to firm with constant massage. Once stopped massaging, uterus quickly became boggy. Second IV placed and TXA started and ran wide open. STAT CBC sent and 2 units of blood crossed matched. Fundus firm without massage and bleeding stopped. Vagina and perineum intact. Final vaginal sweep done with no clots or bleeding noted. EBL [address] Hardwick notified of delivery and PPH. Will repeat CBC in AM. Presentation: Vertex Amniotic Membrane Rupture Type: Artificial Amniotic Fluid Description: Clear Placental Delivery Description: Spontaneous Placenta Disposition: [facility] Cord Vessel Description: 3 Vessels Cord Entanglement: None Infant A Gender: Female (1 minute): 9 (5 minute): 9 Delayed Cord Clamping: Yes Post Vaginal Delivery Medications Given After Delivery: IV Pitocin, IM Pitocin, IM Methergin and - (Cytotec 1000 mcg [place], TXA) Episiotomy Description: None Laceration: None
[2023-09-22] MEDS: Ondansetron 4 MG/2 ML Vial IV (20:12)
[2023-09-22] MEDS: Cefazolin 2 GM in 0.9% Normal Saline (100mL Bag) 100 ML IV (21:04)
[2023-09-23] MEDS: Naproxen 500 MG Tablet PO ×2 (01:14→14:02)
[2023-09-23 01:17] VITALS: BP 110/64; PULSE 78; RESP 18; TEMP 36.8; O2SAT 97
[2023-09-23 04:40] VITALS: BP 109/58
[2023-09-23 05:24] LABS: Absolute Lymphocyte Count 1.79 X10^3/uL (0.83-4.51); Basophil# 0.04 X10^3/uL; Basophil% 0.3 % (0-1); Eosinophil# 0.23 X10^3/uL; Eosinophils% 1.9 % (0-5); Hematocrit 26.4 % (37-47); Hemoglobin 8.4 g/dL (12.0-15.0); Lymphocyte # 1.79 X10^3/ul (0.83-4.51); Lymphocyte % 15.1 % (19-41); Mean Corp Hgb Conc 31.8 g/dL (32-36); Mean Platelet Vol. 10.7 fl (6.2-12.0); Monocyte# 0.76 X10^3/uL; Monocyte% 6.4 % (0-10); NRBC Flagged by Analyzer 0 % (0-5); Neutrophil # 9.01 X10^3/uL (2.7-7.7); Neutrophil % 75.9 % (47-70); Platelet Count 215 K/mm3 (150-450); RBC Distribution Width CV 18.6 % (11.6-14.6); RBC Distribution Width SD 59.1 fl (35.1-43.9); White Blood Count 11.9 K/mm3 (4.4-11.0)
--- NOTE | 2023-09-23 07:47 | PCM.PN.CNM ---
Subjective Subjective Patient seen at bedside. Denies pain. Denies any dizziness, headache, SOB, or CP. with support. Ambulating to bathroom and voiding. Objective Data Objective Data Vital Signs: Vital Signs Temp Pulse Resp BP Pulse Ox O2 Del Method 98.2 F 78 18 109/58 L 97 Room Air 09/23/23 01:17 09/23/23 01:17 09/23/23 01:17 09/23/23 04:40 09/23/23 01:17 09/23/23 01:17 Oxygen Delivery Method Room Air Weight: 158 lb Body Mass Index (BMI) 28.0 Intake & Output: Intake and Output for Last 24 Hours 09/21/23 09/22/23 09/23/23 23:59 23:59 23:59 Intake Total 3592.12 / 3592.12 Output Total 1200 / 1200 550 / 550 Balance 2392.12 / 2392.12 -550 / -550 Lab / Micro Data 09/23/23 05:15 Labs: Laboratory Results - last 24 hr 09/22/23 08:20: WBC 11.1 H, RBC 3.73 L, Hgb 10.5 L, Hct 32.9 L, MCV 88.2, MCH 28.2, MCHC 31.9 L, RDW Std Deviation 61.3 H, RDW Coeff of Candy 19.4 H, Plt Count 241, MPV 11.0, Immature Gran % (Auto) 0.500, Neut % (Auto) 74.8 H, Lymph % (Auto) 15.5 L, [place] % (Auto) 6.6, Eos % (Auto) 2.1, Baso % (Auto) 0.5, Absolute Neuts (auto) 8.3 H, Absolute Lymphs (auto) 1.73, Nucleated RBC % 0, Urine Opiates Screen NEGATIVE, Urine Methadone Screen NEGATIVE, Ur Barbiturates Screen NEGATIVE, Ur Phencyclidine Scrn NEGATIVE, Ur Amphetamines Screen NEGATIVE, MDMA (Ecstasy) Screen NEGATIVE, U Benzodiazepines Scrn NEGATIVE, Urine Cocaine Screen NEGATIVE, U Cannabinoids Screen NEGATIVE, Ur Drug Screen Comment , Syphilis Total Ab Non-reactive, Blood Type O POSITIVE, Antibody Screen NEGATIVE 09/22/23 19:30: WBC 12.1 H, RBC 2.81 L, Hgb 7.9 L, Hct 25.2 L, MCV 89.7, MCH 28.1, MCHC 31.3 L, RDW Std Deviation 61.1 H, RDW Coeff of Candy 19.0 H, Plt Count 201, MPV 11.0, Immature Gran % (Auto) 0.500, Neut % (Auto) 78.8 H, Lymph % (Auto) 13.4 L, [place] % (Auto) 5.9, Eos % (Auto) 1.0, Baso % (Auto) 0.4, Absolute Neuts (auto) 9.6 H, Absolute Lymphs (auto) 1.62, Nucleated RBC % 0 09/23/23 05:15: WBC 11.9 H, RBC 3.00 L, Hgb 8.4 L, Hct 26.4 L, MCV 88.0, MCH 28.0, MCHC 31.8 L, RDW Std Deviation 59.1 H, RDW Coeff of Candy 18.6 H, Plt Count 215, MPV 10.7, Immature Gran % (Auto) 0.400, Neut % (Auto) 75.9 H, Lymph % (Auto) 15.1 L, [place] % (Auto) 6.4, Eos % (Auto) 1.9, Baso % (Auto) 0.3, Absolute Neuts (auto) 9.0 H, Absolute Lymphs (auto) 1.79, Nucleated RBC % 0 ROS Eyes Eyes: Denies blurry vision, change in vision or spots in vision ENT HEENT: Denies dizziness or headache(s) Cardiovascular Cardiovascular: Denies abdominal pain, chest pain or dyspnea Respiratory/Chest Respiratory/Chest: Denies cough, dyspnea, shortness of breath at rest or shortness of breath with exertion Gastrointestinal Gastrointestinal: Denies abdominal pain, diarrhea or vomiting Genitourinary Genitourinary: Denies change in urinary stream, difficulty urinating or dysuria Musculoskeletal Musculoskeletal: Reports none Integumentary Integumentary: Denies rash Neurologic Neurologic: Denies dizziness, headache(s), memory loss or weakness Physical Exam Const alert and no apparent distress General Appearance: cooperative and comfortable Exam Limitations: no limitations HEENT normocephalic Eyes General Eye: normal appearance of both eyes Neck full ROM General: normal visual inspection Chest Chest: symmetrical chest wall rise Resp normal respiratory effort and normal air movement Effort and Inspection: symmetric chest movement Auscultation: clear to auscultation bilaterally Cardio regular rate and regular rhythm GI normal to inspection, nondistended, normoactive bowel sounds Bimanual Exam - Vag & Uterus: other Uterus firm and 3 below U Back/Spine normal ROM Extremity full ROM and no calf tenderness General Extremity: normal exam except as noted Skin no rashes or lesions noted Neuro CN's II-XII intact bilaterally Psych mental status grossly normal Assessment & Plan (1) Anemia due to blood loss: (2) PPH ( hemorrhage): (3) (spontaneous vaginal delivery): (4) Seizure: COMMENT: 11/2022 (5) Grand multipara: (6) Depression: (7) History of marijuana use: (8) Support system deficit: PLAN: Plan PPD 1 HGB 8.4 up from 7.9 yesterday Lochia decreasing support Social service consult for history Will continue to monitor closely Anticipate discharge home later tomorrow
[2023-09-23 08:00] VITALS: BP 107/60; PULSE 73; RESP 14; TEMP 36.4; O2SAT 98
[2023-09-23] MEDS: Sertraline 50 MG Tablet 25 MG PO (10:38)
[2023-09-23] MEDS: levETIRAcetam 250 MG Tablet PO ×2 (10:39→21:41)
[2023-09-23] MEDS: MedroxyPROGESTERone 150 MG/ML Syringe IM (10:39)
[2023-09-23] MEDS: Ferrous Sulfate 325 MG Tablet PO ×2 (10:39→17:01)
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
[2023-09-23] MEDS: Acetaminophen 500 MG Tablet 1000 MG PO (11:30)
[2023-09-23 13:30] VITALS: BP 117/67; PULSE 76; RESP 14; TEMP 36.8; O2SAT 97
[2023-09-23 16:15] VITALS: BP 111/68; PULSE 65; RESP 14; TEMP 36.3; O2SAT 97
[2023-09-23] MEDS: 0.9% Saline Lock 10 ML Syringe IV ×2 (17:34→21:41)
--- NOTE | 2023-09-23 17:41 | NURSING ---
Bladder scan performed post-void. Residual urine amount in bladder was 11ml. Patient's total urine output over 10.5 hours is 350ml. Patient has drank 300ml of water and is drinking apple juice, but has not saved the containers so the amount is unknown. Encouraged patient to hydrate orally. Patient is no longer dizzy when standing. Left message with Marj Whiteside and awaiting call back on further orders.
[2023-09-23 19:27] VITALS: BP 102/64; PULSE 75; RESP 24; TEMP 36.5; O2SAT 97
[2023-09-23] MEDS: Lactated Ringers 1,000 ML 100 ML IV (21:41)
[2023-09-24 02:04] VITALS: BP 97/60; PULSE 64; RESP 20; TEMP 36.4; O2SAT 97
[2023-09-24] MEDS: Acetaminophen 500 MG Tablet 1000 MG PO (02:07)
[2023-09-24] MEDS: 0.9% Saline Lock 10 ML Syringe IV ×2 (05:23→06:34)
[2023-09-24 05:33] LABS: Hematocrit 24.6 % (37-47); Hemoglobin 7.8 g/dL (12.0-15.0); Mean Corp Hgb Conc 31.7 g/dL (32-36); Mean Corpuscular Hgb 28.2 pg (27.0-32.0); Mean Corpuscular Volume 88.8 fL (81-99); Mean Platelet Vol. 10.8 fl (6.2-12.0); Platelet Count 211 K/mm3 (150-450); Red Blood Count 2.77 M/mm3 (4.2-5.4); White Blood Count 7.1 K/mm3 (4.4-11.0)
[2023-09-24] MEDS: Sodium Ferric Gluconat 250 MG in 0.9% Normal Saline 250 ML 135 MG IV (06:39)
[2023-09-24] MEDS: Naproxen 500 MG Tablet PO (06:40)
--- NOTE | 2023-09-24 06:49 | DS.PCM_ITS ---
Providers Date of Admission: 09/22/23 Primary Care Physician: Emmanuelle Primary Care Phys Reason For Visit: INDUCTION Diagnosis Discharge Diagnosis (1) Anemia due to blood loss: Status: Acute Code(s): D50.0 - Iron deficiency anemia secondary to blood loss (chronic) (2) PPH ( hemorrhage): Status: Acute Code(s): O72.1 - Other immediate hemorrhage (3) (spontaneous vaginal delivery): Status: Acute Code(s): O80 - Encounter for full-term uncomplicated delivery (4) Seizure: Status: Acute Code(s): R56.9 - Unspecified convulsions Plan PPD 1 HGB 7.8 - slight dizziness IV FE dose x 1 now Continue oral iron daily Lochia decreasing support Social service consult for history D/C home with follow up in office Medications at Discharge Home Medications sertraline 50 mg tablet 25 mg PO DAILY anxiety 05/25/23 PNV no.151-iron 27 mg-folic 800 mcg-omega3 260 en-sur-fpc-fish capsule ( Multi-DHA (with vitamin K)) 1 PO DAILY 09/22/23 FeroSul 325 mg (65 mg iron) tablet (ferrous sulfate) 325 mg PO 1200,1700 #60 tabs 09/24/23 acetaminophen 500 mg tablet 1,000 mg (2 x 500 mg) PO Q6H PRN PRN Pain 1-10 Or Fever #0 tabs 09/24/23 levetiracetam 250 mg tablet 250 mg PO BID #60 tabs 09/24/23 sertraline 50 mg tablet 25 mg (1/2 x 50 mg) PO DAILY #30 tabs 09/24/23 Hospital Course Operations None Procedures None Summary of Care Provided Minutes Spent on Discharge: 15 Hospital Course: Patient had Physical Exam Narrative Patient seen at bedside. Reports feeling better. Able to ambulate and void without assistance. Slight dizziness when initially stands up. Lochia decreasing. with minimal support. Desires discharge home. Const alert and no apparent distress General Appearance: cooperative and comfortable Exam Limitations: no limitations HEENT normocephalic Eyes General Eye: normal appearance of both eyes Neck full ROM General: normal visual inspection Chest Chest: symmetrical chest wall rise Resp normal respiratory effort and normal air movement Effort and Inspection: symmetric chest movement Auscultation: clear to auscultation bilaterally Cardio regular rate and regular rhythm GI normal to inspection, nondistended, normoactive bowel sounds Back/Spine normal ROM Extremity full ROM and no calf tenderness General Extremity: normal exam except as noted Skin no rashes or lesions noted Neuro CN's II-XII intact bilaterally Psych mental status grossly normal Weight / BMI Weight Weight: 158 lb Body Mass Index (BMI) 28.0 ABG / Lab / Microbiology Data 09/24/23 05:20 Laboratory: Laboratory Results - last 24 hr 09/24/23 05:20: WBC 7.1, RBC 2.77 L, Hgb 7.8 L, Hct 24.6 L, MCV 88.8, MCH 28.2, MCHC 31.7 L, RDW Std Deviation 61.0 H, RDW Coeff of Candy 19.0 H, Plt Count 211, MPV 10.8 D/C Instructions Discharge Diet: No restrictions May resume sexual activity in: 6-8 weeks Weight Bearing Status: Weight bearing as tolerated Call your doctor if you observe: Fever of 101 or Higher, Inability to urinate, Using more than 1 pad per hour, Shortness of breath, Chest pain, Calf discomfort and Uncontrolled pain Additional Instructions: DepoProvera injection given on 09/23/23- will need repeat dose in 12 weeks Medication prescriptions sent to [facility] Please Follow Up With: Marj Whiteside CNM When: 2 weeks virtual visit/ 6 weeks in office Meaningful Use Info Meaningful Use Diagnoses (Choose all that apply): None applicable Discharge Plan Admission Admit Date/Time: 09/22/23 06:50 Primary Reason for Your Visit: Labor and Delivery Attending Provider: Marj Whiteside Primary Care Provider: Care Physician,Emmanuelle Primary Discharge Orders/Prescriptions Prescriptions: New acetaminophen 500 mg Tablet 1,000 mg PO Q6H PRN PRN (Reason: Pain 1-10 Or Fever) Qty: 0 0RF levetiracetam 250 mg Tablet 250 mg PO BID Qty: 60 2RF ferrous sulfate [FeroSul] 325 mg (65 mg iron) Tablet 325 mg PO 1200,1700 Qty: 60 3RF sertraline 50 mg Tablet 25 mg PO DAILY Qty: 30 3RF Continued Multi-DHA(with vit K) 27 mg iron-800 mcg-260 mg capsule 1 PO DAILY Discontinued levetiracetam 500 mg tablet 500 mg PO Q12H Patient Comments: TAKE 1 TABLET BY MOUTH TWICE DAILY cyclobenzaprine 5 mg tablet 10 mg PO TID PRN PRN (Reason: anxiety) Patient Comments: TAKE 2 TABLET BY MOUTH 3 TIMES A DAY NEEDED MUSCLE SPASMS folic acid 1 mg tablet 1 mg PO BID No Action sertraline 50 mg tablet 25 mg PO DAILY Patient Comments: TAKE 1/2 (ONE-HALF) OF A TABLET BY MOUTH EVERY DAY Referrals / Follow Up: Marj Whiteside CNM [Med Staff - [facility] Practice Prof] - Care Physician,No Primary [Primary Care Provider] - Disposition Disposition (needs filled in before D/C Order can be placed): Home, Self Care
[2023-09-24 08:30] VITALS: BP 104/69; PULSE 60; RESP 16; TEMP 36.6; O2SAT 100
[2023-09-24] MEDS: Sertraline 50 MG Tablet 25 MG PO (10:22)
[2023-09-24] MEDS: levETIRAcetam 250 MG Tablet PO (10:22)
--- NOTE | 2023-10-07 07:23 | CASEMGMT ---
Social Work SW received letter from [facility]'s Services Board dated 09/24/23 stating the referral made on 09/23/23 was accepted. GIOVANNY Lazo
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
== END 2023-09-24 11:10 | disposition home or self-care (01) | DRG 560 ==
PROVIDERS: Admitting Provider Obstetrics & Gynecology; Referring Provider Obstetrics & Gynecology; Visit Provider Advanced Practice Midwife
DX: O72.1 Other immediate postpartum hemorrhage (principal); Z37.0 Single live birth; R56.9 Unspecified convulsions; F32.A Depression, unspecified; D50.0 Iron deficiency anemia secondary to blood loss (chronic); Z87.891 Personal history of nicotine dependence; O99.344 Other mental disorders complicating childbirth; Z3A.39 39 weeks gestation of pregnancy; Z65.3 Problems related to other legal circumstances; Z64.1 Problems related to multiparity; O99.02 Anemia complicating childbirth; O99.892 Other specified diseases and conditions complicating childbirth
CPT/HCPCS: 59025; 59050; 80307; 85025; 85027; 86780; 86850; 86900; 86901; 99221; J7030; J7050; J7120; A4216; G0378; J2405; J2916